=== PATIENT | female | born 1995 | race Caucasian/White ===

== ENCOUNTER 2017-03-25 01:31 | Emergency (ER) | payer MEDICAID ==
[~2017-03-25] VITALS: Ht 165.1 cm; Wt 72.6 kg
[2017-03-25 01:42] VITALS: BP 137/90
[2017-03-25 01:50] LABS: URINE BLOOD 3+ (NEG)
--- NOTE | 2017-03-25 01:50 | Emergency Room Report ---
History of Present Illness Time Seen by MD Rodriguez Presenting Problem in Triage Pt arrived:Walked Presenting Problem:PT C/O BURNING AND PAIN WITH URINATION AND PAIN IN THE LOWER BACK. 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 N Clinical Suspician of Infection? N Mental Status: 1 - Regular (Normal Baseline) Sepsis Risk:Low Sepsis Risk Have you (or family members/close friends) recently traveled outside the [place]? N If Yes, where/when: Have you had exposure to infectious disease within the past month? N TB? Other? Specify: Source patient, RN notes reviewed, old records Exam Limitations no limitations Comment urinary freq and dysuria over the last few days with no fever or vomiting Cardiac Chest Pain Chest pain indicative of cardiac No Timing/Duration this evening Severity moderate ALLERGIES Coded Allergies: No Known Allergies (03/25/17) Home Medications Reported Medications No Known Home Medications History Medical History General CAD? No Angina: No [place]: No Hypertension? No Hyperlipidemia? No CHF? No DVT? No PE? No COPD? No Asthma? No Anemia? No GERD? No Gastric ulcers? No GI Bleed? No Hernia? No Thyroid Problems? No Hypothyroidism? No CVA? No Seizures? No Diabetes? No Renal Insuffiency? No End Stage Renal Disease? No UTI? No Stones? No BPH? No GB Disease: No Nephritic Syndrome? No Asplenia? No Hepatitis? No Sickle Cell Disease? No Arthritis? No Migraines? No Cataracts? No Glaucoma? No MRSA? No HIV? No TB? No Anxiety? No Depression? No Cancer? No More? 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 Respiratory denies cough, denies shortness of breath, denies wheezing Cardiovascular denies chest pain, denies palpitations, denies syncope Gastrointestinal denies abdominal pain, denies diarrhea, denies vomiting Genitourinary see HPI, dysuria, frequency. denies: discharge, abnormal vaginal bleeding, hematuria. Musculoskeletal denies back pain, denies joint pain, denies joint swelling, denies neck pain Skin denies see HPI, denies rash Psychiatric/Neurological denies headache, denies seizure Physical Exam Vital Signs Vital Signs Date Time Temp Pulse Resp B/P Pulse O2 O2 Flow FiO2 Ox Delivery Rate 03/25 0142 98.4 85 16 137/90 98 - WBC >12,000 or <4,000 or 10% bands? 2 or more SIRS Criteria Met? B/P:137/90 MAP:105 Creatinine >2.0? UA output<0.5ml/kg/hr for 2 hrs? Platelet count >100,000? Lactate >2.0mmol/1? INR >1.2 or PTT > than 60 sec? Evidence of Organ Dysfunction? Provider documented clinical suspician of infection? N Sepsis Criteria Count: 0 Sepsis Risk: Low Sepsis Risk General Appearance no apparent distress Eye Exam - bilateral eye PERRL, bilateral eye EOMI Ear, Nose, Throat normal ENT inspection Neck non-tender Respiratory Status No: respiratory distress. Lung Sounds bilateral: lungs clear. 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 No Results/Orders Laboratory Tests 03/25/17 0140: Urine Color ORANGE, Urine Appearance Turbid, Urine pH 5.5, Ur Specific [place] > = 1.030, Urine Protein 3+ H, Urine Ketones NEGATIVE, Urine Blood 3+ H, Urine Nitrate POSITIVE H, Urine Bilirubin NEGATIVE, Urine Urobilinogen >=8.0 H, Ur Leukocyte Esterase 2+ H, Urine RBC 20-50, Urine WBC 10-20, Ur Squamous Epith Cells 3-5, Urine Bacteria 2+, Urine Mucus 1+, Urine Glucose 1+ H Current Medication Orders Sig/Kal Start time Last Medication Dose Route Stop Time Status Admin Trimethoprim/ 0 .STK-MED ONE 03/25 214 DC Sulfamethoxazole PO Orders Procedure Date/time Status URINALYSIS/COMPLETE 03/25 141 Complete URINE 03/25 141 Complete CULTURE, URINE 03/25 140 Active Departure Departure Time of Disposition 0208 Disposition DC Home or Self Care(routine) Clinical Impression Primary Impression: UTI (urinary tract infection) Qualifiers: Urinary tract infection type: acute cystitis Hematuria presence: without hematuria Qualified Code: N30.00 - Acute cystitis without hematuria Condition STABLE Patient Instructions DI for Urinary Tract Infection (UTI) Additional Instructions fluids and see pcp for follow up and culture results Discharge Counseling Counseled pt/family regarding diagnosis, test results, medications/RX, follow up needs Prescriptions Current Visit Scripts SULFAMETHOXAZOLE/TRIMETHOPRIM (Sulfamethoxazole-Tmp Ds Tablet) 1 TAB PO BID #14 TAB ED Critical Care Critical Care No at 0216
--- NOTE | 2017-03-25 01:50 | Emergency Room Report ---
History of Present Illness Time Seen by MD Rodriguez Presenting Problem in Triage Pt arrived:Walked Presenting Problem:PT C/O BURNING AND PAIN WITH URINATION AND PAIN IN THE LOWER BACK. 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 N Clinical Suspician of Infection? N Mental Status: 1 - Regular (Normal Baseline) Sepsis Risk:Low Sepsis Risk Have you (or family members/close friends) recently traveled outside the [place]? N If Yes, where/when: Have you had exposure to infectious disease within the past month? N TB? Other? Specify: Source patient, RN notes reviewed, old records Exam Limitations no limitations Comment urinary freq and dysuria over the last few days with no fever or vomiting Cardiac Chest Pain Chest pain indicative of cardiac No Timing/Duration this evening Severity moderate ALLERGIES Coded Allergies: No Known Allergies (03/25/17) Home Medications Reported Medications No Known Home Medications History Medical History General CAD? No Angina: No [place]: No Hypertension? No Hyperlipidemia? No CHF? No DVT? No PE? No COPD? No Asthma? No Anemia? No GERD? No Gastric ulcers? No GI Bleed? No Hernia? No Thyroid Problems? No Hypothyroidism? No CVA? No Seizures? No Diabetes? No Renal Insuffiency? No End Stage Renal Disease? No UTI? No Stones? No BPH? No GB Disease: No Nephritic Syndrome? No Asplenia? No Hepatitis? No Sickle Cell Disease? No Arthritis? No Migraines? No Cataracts? No Glaucoma? No MRSA? No HIV? No TB? No Anxiety? No Depression? No Cancer? No More? 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 Respiratory denies cough, denies shortness of breath, denies wheezing Cardiovascular denies chest pain, denies palpitations, denies syncope Gastrointestinal denies abdominal pain, denies diarrhea, denies vomiting Genitourinary see HPI, dysuria, frequency. denies: discharge, abnormal vaginal bleeding, hematuria. Musculoskeletal denies back pain, denies joint pain, denies joint swelling, denies neck pain Skin denies see HPI, denies rash Psychiatric/Neurological denies headache, denies seizure Physical Exam Vital Signs Vital Signs Date Time Temp Pulse Resp B/P Pulse O2 O2 Flow FiO2 Ox Delivery Rate 03/25 0142 98.4 85 16 137/90 98 - WBC >12,000 or <4,000 or 10% bands? 2 or more SIRS Criteria Met? B/P:137/90 MAP:105 Creatinine >2.0? UA output<0.5ml/kg/hr for 2 hrs? Platelet count >100,000? Lactate >2.0mmol/1? INR >1.2 or PTT > than 60 sec? Evidence of Organ Dysfunction? Provider documented clinical suspician of infection? N Sepsis Criteria Count: 0 Sepsis Risk: Low Sepsis Risk General Appearance no apparent distress Eye Exam - bilateral eye PERRL, bilateral eye EOMI Ear, Nose, Throat normal ENT inspection Neck non-tender Respiratory Status No: respiratory distress. Lung Sounds bilateral: lungs clear. 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 No Results/Orders Laboratory Tests 03/25/17 0140: Urine Color ORANGE, Urine Appearance Turbid, Urine pH 5.5, Ur Specific [place] > = 1.030, Urine Protein 3+ H, Urine Ketones NEGATIVE, Urine Blood 3+ H, Urine Nitrate POSITIVE H, Urine Bilirubin NEGATIVE, Urine Urobilinogen >=8.0 H, Ur Leukocyte Esterase 2+ H, Urine RBC 20-50, Urine WBC 10-20, Ur Squamous Epith Cells 3-5, Urine Bacteria 2+, Urine Mucus 1+, Urine Glucose 1+ H Current Medication Orders Sig/Kal Start time Last Medication Dose Route Stop Time Status Admin Trimethoprim/ 0 .STK-MED ONE 03/25 214 DC Sulfamethoxazole PO Orders Procedure Date/time Status URINALYSIS/COMPLETE 03/25 141 Complete URINE 03/25 141 Complete CULTURE, URINE 03/25 140 Active Departure Departure Time of Disposition 0208 Disposition DC Home or Self Care(routine) Clinical Impression Primary Impression: UTI (urinary tract infection) Qualifiers: Urinary tract infection type: acute cystitis Hematuria presence: without hematuria Qualified Code: N30.00 - Acute cystitis without hematuria Condition STABLE Patient Instructions DI for Urinary Tract Infection (UTI) Additional Instructions fluids and see pcp for follow up and culture results Discharge Counseling Counseled pt/family regarding diagnosis, test results, medications/RX, follow up needs Prescriptions Current Visit Scripts SULFAMETHOXAZOLE/TRIMETHOPRIM (Sulfamethoxazole-Tmp Ds Tablet) 1 TAB PO BID #14 TAB ED Critical Care Critical Care No at 0216
[2017-03-25 02:01] LABS: URINE BILIRUBIN - DIPSTICK NEGATIVE (NEG)
[2017-03-25] MEDS ORDERED: SEPTRA DS 800 M1 TAB PO (02:16)
--- OUTSIDE RECORDS SUMMARY | 2017-03-25 02:42 | External Medical Summary Rpt | CCD ---
Demographics Home Phone Preferred Language Luxembourgish Marital Status Unknown Nondenominational Affiliation Unknown Race Unknown Ethnic Group Unknown Author Author , LEANNE Organization LEANNE Address Unknown Phone [email or web address] Purpose Continuity of Care Document - 12-26-2013 through 2016 Problems Code Diagnosis DOS Provider Status N39.0 URINARY TRACT INFECTION, SITE NOT SPECIFIED Results Labs Lab Lab Date Result Refere Interp Status Commen Order Detail nces retati t Range on Urine test (03-25-2017 01:40) Urine = NEG complet pregnan 017 NEGATIV ed cy test 01:40 E Urinalysis with microscopy (03-25-2017 01:40) Bacteri 2+ 2+ L O complet a 017 ed detecti 01:40 on in urine sedimen t by Urine NEGATIV NEG complet total 017 E ed bilirub 01:40 NEGATIV in E L detecti on by test Comment: BILIRUBIN CONFIRMED WITH ICTOTEST Urine 3+ 3+ L NEG complet blood 017 ed detecti 01:40 on Urine ORANGE YELLOW complet color 017 ORANGE ed 01:40 L Glucose 1 + NEG complet ur 017 ed test 01:40 strip Urine NEGATIV NEG complet ketones 017 E ed 01:40 NEGATIV detecti E L on by mg/dL automat ed cony Mucus 2+ 2+ L NEG complet detecti 017 ed on in 01:40 urine sedimen t by lig Mucus 1+ 1+ L OCC complet detecti 017 ed on in 01:40 urine sedimen t by lig Urine POSITIV NEG complet nitrite 017 E ed 01:40 POSITIV detecti E L on by test strip Urine = 5.5 5.0-8.5 complet pH 017 ed 01:40 Urine 3 + NEG complet protein 017 mg/dL ed 01:40 measure ment by automat ed t Erythro 20-50 0 complet cytes 017 20-50 L ed detecti 01:40 on in rbc/hpf urine sedimen t Urine > = 1.005-1 complet specifi 017 1.030 .030 ed c 01:40 gravity measure ment Maryou 3-5 3-5 0-5 complet s 017 L ed epithel 01:40 #/hpf ial cells detecti on in u Urine >=8.0 NEG complet urobili 017 >=8.0 L ed nogen 01:40 detecti E.U./dL on by test str Urine 10 - 20 O complet leukocy 017 ed cony 01:40 wbc/hpf count (number /volume ) Urine Turbid CLEAR complet appeara 017 Turbid ed nce 01:40 L determi [facility] DRUGS OF ABUSE SCREEN (7 TEST) (06-16-2014 02:01) Opiates NEGATIV NEGATIV complet 015 E E,NEG. ed 02:01 Comment: DRUG SCREEN CUTOFF LEVELS: Comment: PCP\E\.sk5\E\\E\.sk5\ E\- 25 ng/ml Comment: BENZO \E\.sk5\E\-\E\.sk5\E\ 200 ng/ml Comment: SINDY\E\.sk5\E\\E\.sk5\ E\-\E\.sk5\E\300 ng/ml Comment: AMP\E\.sk5\E\\E\.sk5\ E\-\E\.sk5\E\1000 ng/ml Comment: THC\E\.sk5\E\\E\.sk5\ E\-\E\.sk5\E\50 ng/ml Comment: OPI\E\.sk5\E\\E\.sk5\ E\-\E\.sk5\E\300 ng/ml Comment: CEZAR - 200 ng/ml Comment: METDON \E\.sk5\E\-\E\.sk5\E\ 300 ng/ml Comment: PROPOXY - 300 ng/ml Comment: METHAQ - 300 ng/ml Comment: Comment: Comment: Benzodi NEGATIV NEGATIV complet azepine 015 E E,NEG. ed 02:01 Cocaine NEGATIV NEGATIV complet 015 E E,NEG. ed 02:01 Barbitu NEGATIV NEGATIV complet rates 015 E E,NEG. ed 02:01 Phencyc NEGATIV NEGATIV complet lidine 015 E E,NEG. ed (PCP) 02:01 Ampheta NEGATIV NEGATIV complet min/Met 015 E E,NEG. ed hamp 02:01 THC NEGATIV NEGATIV complet 015 E E,NEG. ed 02:01 METHADONE,URINE (06-16-2014 02:01) Methado NEGATIV NEGATIV complet ne 015 E E,NEG. ed Urine 02:01 URINALYSIS W/MICRO (06-16-2014 02:01) Epithel 06-16- 10-20 NONE complet ial 015 SQUAMOU SEEN ed Cells 02:01 S EPITHEL IAL CELLS Bacteri 2+ NONE complet a 015 SEEN ed 02:01 UA RBC NONE 0-2 complet 015 SEEN ed 02:01 UA WBC 2-5 0-2 complet 015 ed 02:01 Blood NEGATIV NEGATIV complet 015 E E ed 02:01 Bilirub NEGATIV NEGATIV complet in 015 E E ed 02:01 Urobili NEGATIV 0-1 complet nogen 015 E mg/dL ed 02:01 Ketones NEGATIV NEGATIV complet 015 E E ed 02:01 Glucose NEGATIV NEGATIV complet 015 E E ed 02:01 UA NEGATIV NEGATIV complet Protein 015 E E ed 02:01 Nitrite NEGATIV NEGATIV complet 015 E E ed 02:01 Leukocy NEGATIV NEGATIV complet te 015 E E ed 02:01 PH 6.0 5.0-7.0 complet 015 ed 02:01 Specifi 1.025 1.016-1 complet c 015 .022 ed [place] 02:01 Appeara HAZY CLEAR complet nce 015 ed 02:01 Color YELLOW YELLOW, complet 015 STRAW,C ed 02:01 OLORLES S,PALE YELLOW SUBOXONE, IN HOUSE (06-16-2014 02:01) BUPRENO 06-16-2 NEGATIV NEGATIV complet RPHINE/ 015 E E ed 02:01 SUBOXAN E URINALYSIS W/MICRO (06-12-2014 16:47) TRICHOM 06-12-2 none complet ONAS 015 seen ed 16:47 AMORPHO -23-2 NONE NONE complet US 015 SEEN SEEN ed SEDIMEN 16:47 T YEAST, 06-12-2 NONE NONE complet UA 015 OBSERVE OBSERVE ed 16:47 D D Crystal 06-12-2 NONE NONE complet s 015 SEEN SEEN ed 16:47 Casts 06-12-2 NONE NONE complet 015 SEEN SEEN ed 16:47 Mucus -23-2 NONE NONE complet 015 SEEN SEEN ed 16:47 Epithel -23-2 5-10 NONE complet ial 015 SQUAMOU SEEN ed Cells 16:47 S EPITHEL IAL CELLS Bacteri 06-12-2 1+ NONE complet a 015 SEEN ed 16:47 UA RBC -23-2 NONE 0-2 complet 015 SEEN ed 16:47 UA WBC -23-2 0-2 0-2 complet 015 ed 16:47 Blood -23-2 NEGATIV NEGATIV complet 015 E E ed 16:47 Bilirub -23-2 NEGATIV NEGATIV complet in 015 E E ed 16:47 Urobili 02-23-2 NEGATIV 0-1 complet nogen 015 E mg/dL ed 16:47 Ketones -23-2 NEGATIV NEGATIV complet 015 E E ed 16:47 Glucose 02-23-2 NEGATIV NEGATIV complet 015 E E ed 16:47 UA 02-23-2 NEGATIV NEGATIV complet Protein 015 E E ed 16:47 Nitrite 02-23-2 NEGATIV NEGATIV complet 015 E E ed 16:47 Leukocy 02-23-2 NEGATIV NEGATIV complet te 015 E E ed 16:47 PH 02-23-2 6.5 5.0-7.0 complet 015 ed 16:47 Specifi 02-23-2 1.015 1.016-1 complet c 015 .022 ed [place] 16:47 Appeara SL HAZY CLEAR complet nce 015 ed 16:47 Color DARK YELLOW, complet 015 YELLOW STRAW,C ed 16:47 OLORLES S,PALE YELLOW DRUGS OF ABUSE SCREEN (7 TEST) (06-09-2014 22:13) Opiates NEGATIV NEGATIV complet 015 E E,NEG. ed 22:13 Comment: DRUG SCREEN CUTOFF LEVELS: Comment: PCP\E\.sk5\E\\E\.sk5\ E\- 25 ng/ml Comment: BENZO \E\.sk5\E\-\E\.sk5\E\ 200 ng/ml Comment: SINDY\E\.sk5\E\\E\.sk5\ E\-\E\.sk5\E\300 ng/ml Comment: AMP\E\.sk5\E\\E\.sk5\ E\-\E\.sk5\E\1000 ng/ml Comment: THC\E\.sk5\E\\E\.sk5\ E\-\E\.sk5\E\50 ng/ml Comment: OPI\E\.sk5\E\\E\.sk5\ E\-\E\.sk5\E\300 ng/ml Comment: CEZAR - 200 ng/ml Comment: METDON \E\.sk5\E\-\E\.sk5\E\ 300 ng/ml Comment: PROPOXY - 300 ng/ml Comment: METHAQ - 300 ng/ml Comment: Comment: Comment: Benzodi NEGATIV NEGATIV complet azepine 015 E E,NEG. ed 22:13 Cocaine NEGATIV NEGATIV complet 015 E E,NEG. ed 22:13 Barbitu NEGATIV NEGATIV complet rates 015 E E,NEG. ed 22:13 Phencyc NEGATIV NEGATIV complet lidine 015 E E,NEG. ed (PCP) 22:13 Ampheta NEGATIV NEGATIV complet min/Met 015 E E,NEG. ed hamp 22:13 THC NEGATIV NEGATIV complet 015 E E,NEG. ed 22:13 METHADONE,URINE (06-09-2014 22:13) Methado NEGATIV NEGATIV complet ne 015 E E,NEG. ed Urine 22:13 URINALYSIS W/MICRO (06-09-2014 22:13) TRICHOM 06-09- none complet ONAS 015 seen ed 22:13 AMORPHO 06-09- NONE NONE complet US 015 SEEN SEEN ed SEDIMEN 22:13 T YEAST, NONE NONE complet UA 015 OBSERVE OBSERVE ed 22:13 D D Crystal 06-09- NONE NONE complet s 015 SEEN SEEN ed 22:13 Casts NONE NONE complet 015 SEEN SEEN ed 22:13 Mucus 06-09- NONE NONE complet 015 SEEN SEEN ed 22:13 Epithel 06-09-2 0-4 NONE complet ial 015 SQUAMOU SEEN ed Cells 22:13 S EPITHEL IAL CELLS Bacteri 06-09- TRACE NONE complet a 015 SEEN ed 22:13 UA RBC 06-09-2 NONE 0-2 complet 015 SEEN ed 22:13 UA WBC 06-09-2 0-2 0-2 complet 015 ed 22:13 Blood NEGATIV NEGATIV complet 015 E E ed 22:13 Bilirub 06-09-2 NEGATIV NEGATIV complet in 015 E E ed 22:13 Urobili 06-09-2 NEGATIV 0-1 complet nogen 015 E mg/dL ed 22:13 Ketones 06-09- NEGATIV NEGATIV complet 015 E E ed 22:13 Glucose 06-09-2 NEGATIV NEGATIV complet 015 E E ed 22:13 UA 06-09-2 NEGATIV NEGATIV complet Protein 015 E E ed 22:13 Nitrite 06-09-2 NEGATIV NEGATIV complet 015 E E ed 22:13 Leukocy 06-09-2 NEGATIV NEGATIV complet te 015 E E ed 22:13 PH 06-09- 7.0 5.0-7.0 complet 015 ed 22:13 Specifi 06-09- 1.015 1.016-1 complet c 015 .022 ed [place] 22:13 Appeara 06-09-2 SL HAZY CLEAR complet nce 015 ed 22:13 Color 06-09- DARK YELLOW, complet 015 YELLOW STRAW,C ed 22:13 OLORLES S,PALE YELLOW SUBOXONE, IN HOUSE (06-09-2014 22:13) BUPRENO NEGATIV NEGATIV complet RPHINE/ 015 E E ed 22:13 SUBOXAN E RPR,SERUM (06-08-2014 14:42) RPR NON-OLVIN NON-OLVIN complet 015 CTIVE CTIVE ed 14:42 METHADONE,URINE (06-07-2014 15:00) Methado NEGATIV NEGATIV complet ne 015 E E,NEG. ed Urine 15:00 DRUGS OF ABUSE SCREEN (7 TEST) (06-07-2014 15:00) Opiates NEGATIV NEGATIV complet 015 E E,NEG. ed 15:00 Comment: DRUG SCREEN CUTOFF LEVELS: Comment: PCP\E\.sk5\E\\E\.sk5\ E\- 25 ng/ml Comment: BENZO \E\.sk5\E\-\E\.sk5\E\ 200 ng/ml Comment: SINDY\E\.sk5\E\\E\.sk5\ E\-\E\.sk5\E\300 ng/ml Comment: AMP\E\.sk5\E\\E\.sk5\ E\-\E\.sk5\E\1000 ng/ml Comment: THC\E\.sk5\E\\E\.sk5\ E\-\E\.sk5\E\50 ng/ml Comment: OPI\E\.sk5\E\\E\.sk5\ E\-\E\.sk5\E\300 ng/ml Comment: CEZAR - 200 ng/ml Comment: METDON \E\.sk5\E\-\E\.sk5\E\ 300 ng/ml Comment: PROPOXY - 300 ng/ml Comment: METHAQ - 300 ng/ml Comment: Comment: Comment: Benzodi NEGATIV NEGATIV complet azepine 015 E E,NEG. ed 15:00 Cocaine NEGATIV NEGATIV complet 015 E E,NEG. ed 15:00 Barbitu 02-18-2 NEGATIV NEGATIV complet rates 015 E E,NEG. ed 15:00 Phencyc 02-18-2 NEGATIV NEGATIV complet lidine 015 E E,NEG. ed (PCP) 15:00 Ampheta 02-18-2 NEGATIV NEGATIV complet min/Met 015 E E,NEG. ed hamp 15:00 THC 02-18-2 NEGATIV NEGATIV complet 015 E E,NEG. ed 15:00 URINALYSIS W/MICRO (06-07-2014 15:00) AMORPHO 02-18-2 1+ NONE complet US 015 SEEN ed SEDIMEN 15:00 T Epithel 02-18-2 10-20 NONE complet ial 015 SQUAMOU SEEN ed Cells 15:00 S EPITHEL IAL CELLS Bacteri 02-18-2 2+ NONE complet a 015 SEEN ed 15:00 UA WBC 02-18-2 0-2 0-2 complet 015 ed 15:00 Blood 02-18-2 NEGATIV NEGATIV complet 015 E E ed 15:00 Bilirub 02-18-2 NEGATIV NEGATIV complet in 015 E E ed 15:00 Urobili 02-18-2 NEGATIV 0-1 complet nogen 015 E mg/dL ed 15:00 Ketones 02-18-2 NEGATIV NEGATIV complet 015 E E ed 15:00 Glucose 02-18-2 NEGATIV NEGATIV complet 015 E E ed 15:00 UA 02-18-2 NEGATIV NEGATIV complet Protein 015 E E ed 15:00 Nitrite 02-18-2 NEGATIV NEGATIV complet 015 E E ed 15:00 Leukocy 02-18-2 NEGATIV NEGATIV complet te 015 E E ed 15:00 PH 02-18-2 8.0 5.0-7.0 complet 015 ed 15:00 Specifi 02-18-2 1.015 1.016-1 complet c 015 .022 ed [place] 15:00 Appeara 02-18-2 HAZY CLEAR complet nce 015 ed 15:00 Color 02-18-2 YELLOW YELLOW, complet 015 STRAW,C ed 15:00 OLORLES S,PALE YELLOW SUBOXONE, IN HOUSE (06-07-2014 15:00) BUPRENO 02-18-2 NEGATIV NEGATIV complet RPHINE/ 015 E E ed 15:00 SUBOXAN E HEMOGLOBIN (06-07-2014 14:50) Hemoglo 13.1 12.0-16 complet bin 015 gm/dL .0 ed 14:50 HEMATOCRIT (06-07-2014 14:50) Hematoc 38.3 % 37.0-47 complet rit 015 .0 ed 14:50 URINALYSIS W/C+S IF INDICATED (05-31-2014 23:46) TRICHOM NONE complet ONAS 015 SEEN ed 23:46 AMORPHO 05-31- NONE NONE complet US 015 SEEN SEEN ed SEDIMEN 23:46 T YEAST, NONE NONE complet UA 015 OBSERVE OBSERVE ed 23:46 D D Crystal 05-31- NONE NONE complet s 015 SEEN SEEN ed 23:46 Casts 05-31- NONE NONE complet 015 SEEN SEEN ed 23:46 Mucus -11-2 NONE NONE complet 015 SEEN SEEN ed 23:46 Epithel 05-31-2 0-4 NONE complet ial 015 SQUAMOU SEEN ed Cells 23:46 S EPITHEL IAL CELLS Bacteri 05-31-2 NONE NONE complet a 015 SEEN SEEN ed 23:46 UA RBC 05-31-2 NONE 0-2 complet 015 SEEN ed 23:46 UA WBC -11-2 NONE 0-2 complet 015 SEEN ed 23:46 Blood 05-31- NEGATIV NEGATIV complet 015 E E ed 23:46 Bilirub NEGATIV NEGATIV complet in 015 E E ed 23:46 Urobili 05-31-2 NEGATIV 0-1 complet nogen 015 E mg/dL ed 23:46 Ketones 05-31-2 NEGATIV NEGATIV complet 015 E E ed 23:46 Glucose 05-31-2 NEGATIV NEGATIV complet 015 E E ed 23:46 UA --2 NEGATIV NEGATIV complet Protein 015 E E ed 23:46 Nitrite --2 NEGATIV NEGATIV complet 015 E E ed 23:46 Leukocy 11-2 NEGATIV NEGATIV complet te 015 E E ed 23:46 PH 05-31- 6.5 5.0-7.0 complet 015 ed 23:46 Specifi 05-31-2 1.020 1.016-1 complet c 015 .022 ed [place] 23:46 Appeara 11-2 CLEAR CLEAR complet nce 015 ed 23:46 Color 05-31-2 YELLOW YELLOW, complet 015 STRAW,C ed 23:46 OLORLES S,PALE YELLOW HCG SCREEN,URINE (05-31-2014 23:46) Qualita -11-2 POSITIV NEGATIV complet tive 015 E E ed HCG 23:46 URINALYSIS W/MICRO (05-22-2014 15:25) AMORPHO 05-22-2 3+ NONE complet US 015 SEEN ed SEDIMEN 15:25 T Epithel 02-02-2 50-100 NONE complet ial 015 SEEN ed Cells 15:25 Bacteri 02-02-2 NONE NONE complet a 015 SEEN SEEN ed 15:25 UA RBC 02-02-2 0-2 0-2 complet 015 ed 15:25 UA WBC 02-02-2 NONE 0-2 complet 015 SEEN ed 15:25 Blood 02-02-2 NEGATIV NEGATIV complet 015 E E ed 15:25 Bilirub 02-02-2 NEGATIV NEGATIV complet in 015 E E ed 15:25 Urobili 02-02-2 NEGATIV 0-1 complet nogen 015 E mg/dL ed 15:25 Ketones 02-02-2 NEGATIV NEGATIV complet 015 E E ed 15:25 Glucose 02-02-2 NEGATIV NEGATIV complet 015 E E ed 15:25 UA 02-02-2 NEGATIV NEGATIV complet Protein 015 E E ed 15:25 Nitrite 02-02-2 NEGATIV NEGATIV complet 015 E E ed 15:25 Leukocy 02-02-2 NEGATIV NEGATIV complet te 015 E E ed 15:25 PH 02-02-2 8.0 5.0-7.0 complet 015 ed 15:25 Specifi 02-02-2 1.010 1.016-1 complet c 015 .022 ed [place] 15:25 Appeara 02-02-2 HAZY CLEAR complet nce 015 ed 15:25 Color -02-2 DARK YELLOW, complet 015 YELLOW STRAW,C ed 15:25 OLORLES S,PALE YELLOW URINALYSIS W/MICRO (05-08-2014 18:00) AMORPHO 05-08-2 2+ NONE complet US 015 SEEN ed SEDIMEN 18:00 T Epithel 05-08-2 50-100 NONE complet ial 015 SEEN ed Cells 18:00 UA RBC 05-08-2 0-2 0-2 complet 015 ed 18:00 Blood 05-08-2 NEGATIV NEGATIV complet 015 E E ed 18:00 Bilirub 05-08-2 NEGATIV NEGATIV complet in 015 E E ed 18:00 Urobili 05-08-2 0 mg/dL 0-1 complet nogen 015 ed 18:00 Ketones 05-08-2 NEGATIV NEGATIV complet 015 E E ed 18:00 Glucose 05-08-2 NEGATIV NEGATIV complet 015 E E ed 18:00 UA 05-08-2 TRACE NEGATIV complet Protein 015 E ed 18:00 Nitrite 05-08-2 NEGATIV NEGATIV complet 015 E E ed 18:00 Leukocy 05-08-2 NEGATIV NEGATIV complet te 015 E E ed 18:00 PH 05-08-2 8.0 5.0-7.0 complet 015 ed 18:00 Specifi 05-08-2 1.005 1.016-1 complet c 015 .022 ed [place] 18:00 Appeara 2 SL HAZY CLEAR complet nce 015 ed 18:00 Color 05-08-2 YELLOW YELLOW, complet 015 STRAW,C ed 18:00 OLORLES S,PALE YELLOW GLUCOSE 50 GM,NO FBS (04-17-2014 15:30) Comment: 50 Gram Glucose Test Glucose 04-17-2 96 70-110 complet , 1 Hr 014 mg/dL ed 15:30 URINALYSIS W/MICRO (04-17-2014 14:19) AMORPHO 04-17-2 4+ NONE complet US 014 SEEN ed SEDIMEN 14:19 T Comment: 4+ AMORPHOUS SEDIMENT; ALL ALMAGUER OBSCURED Blood 04-17-2 NEGATIV NEGATIV complet 014 E E ed 14:19 Bilirub 04-17-2 NEGATIV NEGATIV complet in 014 E E ed 14:19 Urobili 04-17-2 NEGATIV 0-1 complet nogen 014 E mg/dL ed 14:19 Ketones 04-17-2 NEGATIV NEGATIV complet 014 E E ed 14:19 Glucose 04-17-2 NEGATIV NEGATIV complet 014 E E ed 14:19 UA 12-29-2 NEGATIV NEGATIV complet Protein 014 E E ed 14:19 Nitrite 12-29-2 POSITIV NEGATIV complet 014 E E ed 14:19 Leukocy 12-29-2 NEGATIV NEGATIV complet te 014 E E ed 14:19 PH 12-29-2 7.0 5.0-7.0 complet 014 ed 14:19 Specifi 12-29-2 1.015 1.016-1 complet c 014 .022 ed [place] 14:19 Appeara 12-29-2 HAZY CLEAR complet nce 014 ed 14:19 Color 12-29-2 YELLOW YELLOW, complet 014 STRAW,C ed 14:19 OLORLES S,PALE YELLOW URINALYSIS W/MICRO (04-03-2014 14:46) Mucus 12-15-2 TRACE NONE complet 014 SEEN ed 14:46 Epithel 12-15-2 5-10 NONE complet ial 014 SQUAMOU SEEN ed Cells 14:46 S EPITHEL IAL CELLS Bacteri 12-15-2 2+ NONE complet a 014 SEEN ed 14:46 UA RBC 12-15-2 NONE 0-2 complet 014 SEEN ed 14:46 UA WBC 12-15-2 2-5 0-2 complet 014 ed 14:46 Blood 12-15-2 NEGATIV NEGATIV complet 014 E E ed 14:46 Bilirub 12-15-2 NEGATIV NEGATIV complet in 014 E E ed 14:46 Urobili 12-15-2 NEGATIV 0-1 complet nogen 014 E mg/dL ed 14:46 Ketones 12-15-2 NEGATIV NEGATIV complet 014 E E ed 14:46 Glucose 12-15-2 NEGATIV NEGATIV complet 014 E E ed 14:46 UA 12-15-2 NEGATIV NEGATIV complet Protein 014 E E ed 14:46 Nitrite 12-15-2 NEGATIV NEGATIV complet 014 E E ed 14:46 Leukocy 12-15-2 NEGATIV NEGATIV complet te 014 E E ed 14:46 PH 12-15-2 7.0 5.0-7.0 complet 014 ed 14:46 Specifi 12-15-2 1.015 1.016-1 complet c 014 .022 ed [place] 14:46 Color 12-15-2 YELLOW YELLOW, complet 014 STRAW,C ed 14:46 OLORLES S,PALE YELLOW Appeara 15-2 HAZY CLEAR complet nce 014 ed 14:46 CBC W/DIFF (04-01-2014 14:30) Comment: SCANNED DIFF/AP Lymphoc 12-13-2 0.4 X 0.7-4.3 complet yte 014 10\S\3 ed Count 14:30 Basophi 12-13-2 0.0 X 0.0-0.1 complet l Count 014 10\S\3 ed 14:30 Eosinop 12-13-2 0.0 X 0.0-0.8 complet hil 014 10\S\3 ed Count 14:30 Monocyt 12-13-2 0.5 X 0.2-1.2 complet e Count 014 10\S\3 ed 14:30 Neutrop 12-13-2 13.0 X 1.5-7.1 complet hil 014 10\S\3 ed Count 14:30 Basophi 12-13-2 0.0 % 0.0-2.0 complet ls % 014 ed 14:30 Eosinop 12-13-2 0.1 % 0.0-6.0 complet hils % 014 ed 14:30 Monocyt 12-13-2 3.5 % 0.0-13. complet es % 014 0 ed 14:30 Lymphoc 12-13-2 3.1 % 20.0-51 complet ytes % 014 .0 ed 14:30 Neutrop 12-13-2 93.3 % 42.0-75 complet hils % 014 .0 ed 14:30 MPV 12-13-2 9.2 fl 6.2-10. complet 014 6 ed 14:30 RDW 12-13-2 14.0 % 12.0-15 complet 014 .0 ed 14:30 MCV 12-13-2 91.7 fl 81.0-99 complet 014 .0 ed 14:30 MCHC 12-13-2 32.0 32.0-37 complet 014 gm/dL .0 ed 14:30 MCH 12-13-2 29.4 pg 27.0-32 complet 014 .0 ed 14:30 Platele 12-13-2 262 X 130-400 complet t 014 10\S\3 ed 14:30 Hematoc 12-13-2 40.5 % 37.0-47 complet rit 014 .0 ed 14:30 Hemoglo 12-13-2 13.0 12.0-16 complet bin 014 gm/dL .0 ed 14:30 RBC 12-13-2 4.41 X 4.20-5. complet 014 10\S\6 40 ed 14:30 WBC 12-13-2 14.0 X 3.5-9.6 complet 014 10\S\3 ed 14:30 COMPREHENSIVE METABOLIC PANEL (04-01-2014 14:30) A/G 12-13-2 0.9 complet Ratio 014 ed 14:30 BUN/Cre 04-01-2 16 complet at 014 ed Ratio 14:30 Bilirub 12-13-2 0.27 0.0-1.0 complet in, 014 mg/dL ed Total 14:30 AST -13-2 14 U/L 15-37 complet 014 ed 14:30 ALT -13-2 30 U/L 3-50 complet 014 ed 14:30 Alk 12-13-2 50 U/L 50-136 complet Phos 014 ed 14:30 Albumin -13-2 3.1 3.4-5.0 complet 014 gm/dL ed 14:30 Total 12-13-2 6.7 6.4-8.2 complet Protein 014 gm/dL ed 14:30 Calcium -13-2 8.7 8.5-10. complet 014 mg/dL 1 ed 14:30 CO2 12-13-2 28 22-29 complet 014 mmol/L ed 14:30 Chlorid 13-2 102 98-107 complet e 014 mEq/L ed 14:30 Potassi -13-2 4.3 3.5-5.1 complet um 014 mEq/L ed 14:30 Sodium -13-2 137 136-145 complet 014 mEq/L ed 14:30 Creatin 12-13-2 0.7 0.6-1.3 complet ine 014 mg/dL ed 14:30 BUN 12-13-2 11 7-18 complet 014 mg/dL ed 14:30 Glucose -13-2 104 70-99 complet 014 mg/dL ed 14:30 LIPASE (04-01-2014 14:30) Lipase -13-2 116 U/L 73-393 complet 014 ed 14:30 AMYLASE,SERUM (04-01-2014 14:30) Amylase 46 U/L 25-115 complet 014 ed 14:30 CULTURE, URINE (04-01-2014 13:43) Clinica Specime complet l 014 n: ed Report 13:43 URINE Clinica Gram complet l 014 Positiv ed Report 13:43 e [facility] <10,000 complet l 014 Cfu/Ml ed Report 13:43 Clinica CUL RES complet l 014 ed Report 13:43 (Final) Clinica Status: complet l 014 Final ed Report 13:43 Last Updated : 014 17:09 Clin[facility] Collect complet l 014 ed: ed Report 13:43 014 13:43 HCG SCREEN,URINE (04-01-2014 13:43) Qualita POSITIV NEGATIV complet tive 014 E E ed HCG 13:43 URINALYSIS W/C+S IF INDICATED (04-01-2014 13:43) TRICHOM 04-01- NONE complet ONAS 014 SEEN ed 13:43 AMORPHO --2 NONE NONE complet US 014 SEEN SEEN ed SEDIMEN 13:43 T YEAST, 2 NONE NONE complet UA 014 OBSERVE OBSERVE ed 13:43 D D Crystal 04-01-2 NONE NONE complet s 014 SEEN SEEN ed 13:43 Casts 04-01- NONE NONE complet 014 SEEN SEEN ed 13:43 Mucus -13-2 NONE NONE complet 014 SEEN SEEN ed 13:43 Epithel -13-2 10-20 NONE complet ial 014 SQUAMOU SEEN ed Cells 13:43 S EPITHEL IAL CELLS Bacteri 04-01-2 NONE NONE complet a 014 SEEN SEEN ed 13:43 UA RBC -13-2 0-2 0-2 complet 014 ed 13:43 UA WBC -13-2 0-2 0-2 complet 014 ed 13:43 Blood --2 NEGATIV NEGATIV complet 014 E E ed 13:43 Bilirub --2 NEGATIV NEGATIV complet in 014 E E ed 13:43 Urobili 04-01-2 NEGATIV 0-1 complet nogen 014 E mg/dL ed 13:43 Ketones 12-13-2 NEGATIV NEGATIV complet 014 E E ed 13:43 Glucose 12-13-2 NEGATIV NEGATIV complet 014 E E ed 13:43 UA 12-13-2 NEGATIV NEGATIV complet Protein 014 E E ed 13:43 Nitrite 12-13-2 NEGATIV NEGATIV complet 014 E E ed 13:43 Leukocy 12-13-2 NEGATIV NEGATIV complet te 014 E E ed 13:43 PH 12-13-2 5.0 5.0-7.0 complet 014 ed 13:43 Specifi 12-13-2 1.020 1.016-1 complet c 014 .022 ed [place] 13:43 Appeara 12-13-2 SL HAZY CLEAR complet nce 014 ed 13:43 Color 12-13-2 YELLOW YELLOW, complet 014 STRAW,C ed 13:43 OLORLES S,PALE YELLOW ALPHA FETOPROTIEN 4 PROFILE (02-20-2014 13:17) Alpha-F 02-20-2 SEE complet eto 014 COMMENT ed 4Marker 13:17 S 014 02:18 PM Comment: Test Result Flag Unit RefValue Comment: ------- Comment: QUAD SCRN (2nd Tri) MATERNAL, S Comment: Calculated age at O[place] 18 years Comment: Maternal Weight 167 lbs Comment: Insulin dependent diabetes None Comment: Black race non-Black Comment: [place] by U/S scan 08/02/14 Comment: GA on collection by U/S scan 16,5 wk,d Comment: GA used in risk estimate Scan estimate Comment: AFP 0.94 MoM ( 33.4 ng/mL ) Comment: uE3 1.44 MoM ( 1.45 ng/mL ) Comment: hCG, TOTAL 0.49 MoM ( 13.5 IU/mL ) Comment: INHIBIN 0.86 MoM ( 141 pg/mL ) Comment: Down syndrome screen risk estimate < 1/50,000 Comment: Down syndrome maternal age risk 04/20,200 Comment: Trisomy 18 screen risk estimate < 1/100 Comment: INTERPRETATION Comment: Screen negative for neural tube defects and Down syndrome. Comment: The risk for trisomy 18 is less than 1%. Comment: RECOMMENDED FOLLOW UP None. Comment: GENERAL TEST INFORMATION Comment: This screening provides an estimation of risk, not a Comment: diagnosis. Incorrect or incomplete information may Comment: significantly alter results. Risks are adjusted for donor Comment: eggs, frozen embryos, and IVF. Comment: Comment: Results may be unreliable in twin pregnancies with a Comment: demise. Results are not available for pregnancies with Comment: triplets and higher-order multiples. Comment: Comment: A positive result occurs when the risk for Down syndrome Comment: equals or exceeds 1 in 270, when the risk for trisomy 18 Comment: equals or exceeds 1 in 100, or when the AFP MoM equals or Comment: exceeds 2.5. Comment: Comment: Screen results and family history influence individual Comment: risk. If there is a family history of a neural tube defect, Comment: chromosome abnormality, or other inherited condition, Comment: consider the option of a genetic consultation. Comment: Comment: For further information, please contact the maternal Comment: screening laboratory at . Comment: Other Information Initial testing Comment: Comment: Test Performed by: Comment: [facility] Comment: [address] [place] [address] Comment: Project Engineer: Mike Rehman M.D. URINALYSIS W/MICRO (02-20-2014 13:17) UA RBC 11-03-2 NONE 0-2 complet 014 SEEN ed 13:17 UA WBC 11-03-2 0-2 0-2 complet 014 ed 13:17 Blood 11-03-2 NEGATIV NEGATIV complet 014 E E ed 13:17 Bilirub 11-03-2 NEGATIV NEGATIV complet in 014 E E ed 13:17 Urobili 11-03-2 NEGATIV 0-1 complet nogen 014 E mg/dL ed 13:17 Glucose 11-03-2 NEGATIV NEGATIV complet 014 E E ed 13:17 UA 11-03-2 NEGATIV NEGATIV complet Protein 014 E E ed 13:17 Nitrite 11-03-2 NEGATIV NEGATIV complet 014 E E ed 13:17 Leukocy 11-03-2 NEGATIV NEGATIV complet te 014 E E ed 13:17 PH 11-03-2 6.5 5.0-7.0 complet 014 ed 13:17 Specifi 1.020 1.016-1 complet c 014 .022 ed [place] 13:17 Ketones NEGATIV NEGATIV complet 014 E E ed 13:17 Appeara CLEAR CLEAR complet nce 014 ed 13:17 Color DARK YELLOW, complet 014 YELLOW STRAW,C ed 13:17 OLORLES S,PALE YELLOW Epithel 10-20 NONE complet ial 014 SQU[place]OU SEEN ed Cells 13:17 S EPITHEL IAL CELLS Bacteri NONE NONE complet a 014 SEEN SEEN ed 13:17 URINALYSIS W/MICRO (12-26-2013 18:00) Leukocy NEGATIV NEGATIV complet te 014 E E ed 18:00 PH 5.0 5.0-7.0 complet 014 ed 18:00 Specifi 1.025 1.016-1 complet c 014 .022 ed [place] 18:00 Crystal 2-5 NONE complet s 014 CALCIUM SEEN ed 18:00 OXALATE CRYSTAL S Casts NONE NONE complet 014 SEEN SEEN ed 18:00 Mucus 2+ NONE complet 014 SEEN ed 18:00 Epithel 10-20 NONE complet ial 014 [place] SEEN ed Cells 18:00 S EPITHEL IAL CELLS Bacteri TRACE NONE complet a 014 SEEN ed 18:00 UA RBC 2-5 0-2 complet 014 ed 18:00 AMORPHO NONE NONE complet US 014 SEEN SEEN ed SEDIMEN 18:00 T YEAST, NONE NONE complet UA 014 OBSERVE OBSERVE ed 18:00 D D TRICHOM NONE complet ONAS 014 SEEN ed 18:00 Color DARK YELLOW, complet 014 YELLOW STRAW,C ed 18:00 OLORLES S,PALE YELLOW Blood 1+ NEGATIV complet 014 E ed 18:00 Bilirub NEGATIV NEGATIV complet in 014 E E ed 18:00 Urobili NEGATIV 0-1 complet nogen 014 E mg/dL ed 18:00 Ketones NEGATIV NEGATIV complet 014 E E ed 18:00 Glucose NEGATIV NEGATIV complet 014 E E ed 18:00 UA NEGATIV NEGATIV complet Protein 014 E E ed 18:00 [facility] SL HAZY CLEAR complet nce 014 ed 18:00 UA WBC 0-2 0-2 complet 014 ed 18:00 Nitrite NEGATIV NEGATIV complet 014 E E ed 18:00 RUBELLA IGG AB (12-26-2013 17:55) Rubella IMMUNE IMMUNE complet IgG 014 ed 17:55 RPR,SERUM (12-26-2013 17:55) RPR NON-OLVIN NON-OLVIN complet 014 CTIVE CTIVE ed 17:55 HEPATITIS C AB (12-26-2013 17:55) HCV AB 0.07 complet INDEX 014 Ratio ed 17:55 Comment: For our FDA approved HCV antibody assay, the CDC states that reflex Comment: supplemental testing of tjalsakyd-xwoy-nkxmvy ve samples can be limited Comment: to those with indices (or Signal/Cut-off ratios) <11.00. However, per Comment: CDC published guidelines, if the index (or Signal/Cut-off ratio) is > or Comment: = 11.00, then further confirmatory testing for this sample is Comment: unnecessary. Hepatit Negativ Negativ complet is C Ab 014 e e ed 17:55 Comment: Hepatitis Virus Panel Legend Comment: Comment: HBSAB = Hepatitis B surface antibody Qualitative Comment: HBSCON = Hepatitis B surface antibody Concentration Comment: HBSAG = Hepatitis B surface antigen Comment: HBCAB = Hepatitis B core antibody, Total Comment: HBC IGM = Hepatitis B core antibody, IgM Comment: HAVT = Hepatitis A antibody, Total Comment: HAV IGM = Hepatitis A antibody, IgM Comment: HCVAB = Hepatitis C antibody Comment: HCV INDX = Hepatitis C ab, Signal/Cut-off ratio Comment: Comment: HEPATITIS BS AG (12-26-2013 17:55) Hepatit Negativ Negativ complet is B s 014 e e ed Ag 17:55 Comment: Hepatitis Virus Panel Legend Comment: Comment: HBSAB = Hepatitis B surface antibody Qualitative Comment: HBSCON = Hepatitis B surface antibody Concentration Comment: HBSAG = Hepatitis B surface antigen Comment: HBCAB = Hepatitis B core antibody, Total Comment: HBC IGM = Hepatitis B core antibody, IgM Comment: HAVT = Hepatitis A antibody, Total Comment: HAV IGM = Hepatitis A antibody, IgM Comment: HCVAB = Hepatitis C antibody Comment: HCV INDX = Hepatitis C ab, Signal/Cut-off ratio Comment: Comment: CBC W/DIFF (12-26-2013 17:55) Basophi 0.6 % 0.0-2.0 complet ls % 014 ed 17:55 Basophi 0.1 X 0.0-0.1 complet l Count 014 10\S\3 ed 17:55 Eosinop 0.0 X 0.0-0.8 complet hil 014 10\S\3 ed Count 17:55 Monocyt 0.6 X 0.2-1.2 complet e Count 014 10\S\3 ed 17:55 Neutrop 6.6 X 1.5-7.1 complet hil 014 10\S\3 ed Count 17:55 Lymphoc 15.6 % 20.0-51 complet ytes % 014 .0 ed 17:55 Neutrop 76.3 % 42.0-75 complet hils % 014 .0 ed 17:55 MPV 9.2 fl 6.2-10. complet 014 6 ed 17:55 RDW 13.7 % 12.0-15 complet 014 .0 ed 17:55 MCV 87.9 fl 81.0-99 complet 014 .0 ed 17:55 Monocyt 7.0 % 0.0-13. complet es % 014 0 ed 17:55 Lymphoc 1.3 X 0.7-4.3 complet yte 014 10\S\3 ed Count 17:55 Platele 315 X 130-400 complet t 014 10\S\3 ed 17:55 Hematoc 41.0 % 37.0-47 complet rit 014 .0 ed 17:55 Hemoglo 13.8 12.0-16 complet bin 014 gm/dL .0 ed 17:55 MCHC 33.7 32.0-37 complet 014 gm/dL .0 ed 17:55 MCH 2 29.6 pg 27.0-32 complet 014 .0 ed 17:55 RBC 4.66 X 4.20-5. complet 014 10\S\6 40 ed 17:55 WBC 8.6 X 3.5-9.6 complet 014 10\S\3 ed 17:55 Eosinop 0.5 % 0.0-6.0 complet hils % 014 ed 17:55 TYPE AND SCREEN 2 CELL PANEL (12-26-2013 17:55) ABO/RH A complet TYPING 014 Positiv ed 17:55 e Antibod NEGATIV complet y 014 E ed Screen 17:55
--- OUTSIDE RECORDS SUMMARY | 2017-03-25 02:42 | External Medical Summary Rpt | CCD ---
Demographics Home Phone Preferred Language Swedish Marital Status Unknown Restorationism Affiliation Unknown Race Unknown Ethnic Group Unknown Author Author , LEANNE Organization LEANNE Address Unknown Phone [email or web address] Purpose Continuity of Care Document - 12-26-2013 [...] 017 Turbid ed nce 01:40 L determi [facility] DRUGS OF ABUSE SCREEN (7 TEST) (06-16-2014 [...] 1.025 1.016-1 complet c 015 .022 ed Deridder 02:01 [facility] HAZY CLEAR complet nce 015 [...] 1.015 1.016-1 complet c 015 .022 ed Deridder 16:47 [facility] SL HAZY CLEAR complet nce [...] 1.015 1.016-1 complet c 015 .022 ed Deridder 22:13 [facility] 06-09-2 SL HAZY CLEAR complet [...] 1.015 1.016-1 complet c 015 .022 ed Deridder 15:00 [facility] 02-18-2 HAZY CLEAR complet nce [...] 1.020 1.016-1 complet c 015 .022 ed Deridder 23:46 [facility] 11-2 CLEAR CLEAR complet nce [...] 1.010 1.016-1 complet c 015 .022 ed Deridder 15:25 [facility] 02-02-2 HAZY CLEAR complet nce [...] 1.005 1.016-1 complet c 015 .022 ed Deridder 18:00 [facility] 2 SL HAZY CLEAR complet [...] 1.015 1.016-1 complet c 014 .022 ed Deridder 14:19 [facility] 12-29-2 HAZY CLEAR complet nce [...] 1.015 1.016-1 complet c 014 .022 ed Deridder 14:46 Color 12-15-2 YELLOW YELLOW, complet 014 [...] 1.020 1.016-1 complet c 014 .022 ed Deridder 13:43 [facility] 12-13-2 SL HAZY CLEAR complet [...] Comment: Comment: Test Performed by: Comment: [facility] Comment: [address] [place] [address] Comment: Emergency Room Physician: Mike Rehman M.D. URINALYSIS W/MICRO (02-20-2014 13:17) [...] 1.020 1.016-1 complet c 014 .022 ed Deridder 13:17 Ketones NEGATIV NEGATIV complet 014 E [...] 1.025 1.016-1 complet c 014 .022 ed Deridder 18:00 Crystal 2-5 NONE complet s 014 [...] states that reflex Comment: supplemental testing of nwulcomrq-slnl-uomfic ve samples can be limited Comment: to [...]
--- OUTSIDE RECORDS SUMMARY | 2017-03-25 02:43 | External Medical Summary Rpt | CCD ---
Demographics Preferred Language Divehi Marital Status Unknown Adventism Affiliation Unknown Race Unknown Ethnic Group Unknown Author Author , LEANNE PERDOMO Address Unknown Phone Immunization No patient found.
--- OUTSIDE RECORDS SUMMARY | 2017-03-25 02:43 | External Medical Summary Rpt | CCD ---
Author Author [employer] Organization [employer] Address Unknown Phone Unavailable Purpose Continuity of Care Document - through 2016
--- OUTSIDE RECORDS SUMMARY | 2017-03-25 02:43 | External Medical Summary Rpt | CCD ---
Demographics Preferred Language Irish Marital Status Unknown Caodaism Affiliation Unknown Race Unknown Ethnic Group Unknown Author Author , LEANNE PERDOMO Address Unknown Phone Immunization No patient found.
--- OUTSIDE RECORDS SUMMARY | 2017-03-25 02:47 | External Medical Summary Rpt ---
Author Author GITALIN Ferrari, [employer] Organization [employer] Address Unknown Phone Unavailable Results Choriogonadotropin.beta subunit [Units] in 24 hour Urine Observa Value Referen Units Interpr Notes Date tion ce etation Range Choriogon NEG No No No Mar 6 adotropin informati informati informati 2016 1:40 .beta on in on in on in AM subunit source source source [Units] data data data in [address] Spine Lumbar w/o Contrast Observa Value Referen Units Interpr Notes Date tion ce etation Range TEXT [employer] No No No No August 25 DIAGNOS t Order informa informa informa informa 2016 IS tion in tion in tion in tion in 3:49 PM BATTERY Descrip source source source source tion: data data data data CT L-SPINE WITHOUT CONTRAS T\.br\\ .br\\.b r\CT OF THE LUMBAR SPINE WITHOUT CONTRAS T, 6\.br\\ .br\Ali gnment of the lumbar spine is anatomi c. There is no evidenc e of acute fractur e, or disloca tion. The heights of the vertebr al bodies are well preserv ed. There are central disk bulges at L4-L5 and L5-S1. There is associa junaa mild to moderat e central canal stenosi s at L4-L5 with mild narrowi ng of the left lateral recess. There is minimal central canal narrowi ng at L5-L1. The include d portion of the retrope ritoneu m is within normal limits. \.br\\. br\ IMPRESS ION:\.b r\\.br\ 1. Central disk bulges at L4-L5 and L5-S1 with resulta nt mild to moderat e narrowi ng of the central canal at the L4-L5 level.\ .br\\.b r\2. No evidenc e of acute fractur e, or disloca tion.\. br\\.br \ END OF REPORT* *\.br\\ .br\Jamie Rodriguez M.D.\.b r\\.br\ Dictate d: 6 4:16 PM\.br\ \.br\Tr anscrib ed: 6 4:31 PM\.br\ \.br\ * Final Report \.br \\.br\D ictated : Atilio Rodriguez M.D. 4:16 pm\.br\ \.br\Tr anscrib ed by: CS 4:34 pm\.br\ \.br\Au thentic ated by: Atilio Rodriguez M.D. 10:26 am\.br\ \.br\ URINALYSIS COMPLETE Observa Value Referen Units Interpr Notes Date tion ce etation Range Color RED No No No No August 25 of informa informa informa informa 2016 Urine tion in tion in tion in tion in 3:39 PM source source source source data data data data Clarity CLOUDY No No No No August 25 of informa informa informa informa 2016 Urine tion in tion in tion in tion in 3:39 PM source source source source data data data data Glucose NEGATIV NEGATIV MG/DL No No August 25 E E informa informa 2015 [Presen tion in tion in 3:39 PM ce] in source source Urine data data by Automat ed test strip Bilirub NEGATIV NEGATIV No No No August 25 in E E informa informa informa 2015 [Presen tion in tion in tion in 3:39 PM ce] in source source source Urine data data data by Automat ed test strip Ketones TRACE NEGATIV MG/DL Abnorma No August 25 E l informa 2015 [Presen tion in 3:39 PM ce] in source Urine data by Automat ed test strip Specifi 1.030 1.006 - No No No August 25 c 1.035 informa informa informa 2016 gravity tion in tion in tion in 3:39 PM of source source source Urine data data data by Automat ed test strip Erythro LARGE NEGATIV No Abnorma No August 25 cytes E informa l informa 2016 [Presen tion in tion in 3:39 PM ce] in source source Urine data data by Automat ed pH of 6.0 5.0 - No No No August 25 Urine 9.0 informa informa informa 2016 by tion in tion in tion in 3:39 PM Automat source source source ed test data data data strip Protein 30 NEGATIV MG/DL No No August 25 E informa informa 2016 [Presen tion in tion in 3:39 PM ce] in source source Urine data data by Automat ed test strip UROBILI 0.2 0.2 - E.U./DL No No August 25 NOGEN 1.0 informa informa 2016 tion in tion in 3:39 PM source source data data Nitrate NEGATIV NEGATIV No No No August 25 E E informa informa informa 2016 [Presen tion in tion in tion in 3:39 PM ce] in source source source Urine data data data Leukocy SMALL NEGATIV No Abnorma No August 25 cony E informa l informa 2016 [Presen tion in tion in 3:39 PM ce] in source source Urine data data by Automat ed Erythro TNTC 0 - 4 /HPF Abnorma No August 25 cytes l informa 2016 [#/area tion in 3:39 PM ] in source Urine data sedimen t by Microsc opy high power field WBC 13 0 - 5 /HPF High No August 25 COUNT informa 2016 tion in 3:39 PM source data Epithel 4 0 - 6 /HPF No No August 25 ial informa informa 2016 cells tion in tion in 3:39 PM [Presen source source ce] in data data Urine sedimen t by Light microsc opy Bacteri NEGATIV NEGATIV /HPF No BACTERI August 25 a E E informa A 2015 [#/area tion in INTERPR 3:39 PM ] in source ETATION Urine data :NEGATI sedimen VE t by <=599/u Microsc lTRACE opy high >=600, power <=1199/ field ul1+ >=1200, <=2399/ ul2+ >=2400, <=3599/ ul3+ >=3600, <=4799/ ul4+ >=4800/ ul Hyaline 2 0 - 4 /LPF No No August 25 casts informa informa 2015 [#/area tion in tion in 3:39 PM ] in source source Urine data data sedimen t by Microsc opy high power field URINE HCG Observa Value Referen Units Interpr Notes Date tion ce etation Range Choriog NEGATIV No No No No August 25 onadotr E informa informa informa informa 2016 opin tion in tion in tion in tion in 3:39 PM (pregna source source source source ncy data data data data test) [Presen ce] in Urine CBC W/DIFF Observa Value Referen Units Interpr Notes Date tion ce etation Range Leukocy 9.3 3.5 - X_10\S\ Normal No Jul 21 cony 9.6 3 2014 [#/volu tion in 6:58 AM me] source correct data ed for nucleat ed erythro cytes in Blood by Automat ed count Erythro 3.23 4.20 - X_10\S\ Low No Jul 21 cytes 5.40 6 2014 [#/volu tion in 6:58 AM me] in source Blood data by Automat ed count Hemoglo 10.1 12.0 - gm/dL Low No Jul 21 bin 16.0 2014 [Mass/v tion in 6:58 AM olume] source in data Blood Hematoc 29.3 37.0 - % Low No Jul 21 rit 47.0 2014 [Volume tion in 6:58 AM source Fractio data n] of Blood by Automat ed count Platele 144 130 - X_10\S\ Normal No Jul 21 ts 400 3 inform2014 [#/volu tion in 6:58 AM me] in source Blood data by Automat ed count Erythro 31.2 27.0 - pg Normal No Jul 21 cyte 32.0 2014 mean tion in 6:58 AM corpusc source ular data hemoglo bin [Entiti c mass] by Automat ed count Erythro 34.4 32.0 - gm/dL Normal No Jul 21 cyte 37.0 inform2014 mean tion in 6:58 AM corpusc source ular data hemoglo bin concent ration [Mass/v olume] by Automat ed count Erythro 90.7 81.0 - fl Normal No Jul 21 cyte 99.0 informa 2014 mean tion in 6:58 AM corpusc source ular data volume [Entiti c volume] by Automat ed count Erythro 13.8 12.0 - % Normal No Jul 21 cyte 15.0 informa 2015 distrib tion in 6:58 AM ution source width data [Ratio] by Automat ed count Platele 10.8 6.2 - fl High No Jul 21 t mean 10.6 informa 2015 volume tion in 6:58 AM [Entiti source c data volume] in Blood by Automat ed count Neutrop 77.0 42.0 - % High No Jul 21 hils/10 75.0 informa 2015 0 tion in 6:58 AM leukocy source cony in data Blood by Automat ed count Lymphoc 13.8 20.0 - % Low No Jul 21 ytes/10 51.0 informa 2015 0 tion in 6:58 AM leukocy source cony in data Blood by Automat ed count Monocyt 8.1 0.0 - % Normal No Jul 21 es/100 13.0 informa 2014 leukocy tion in 6:58 AM cony in source Blood data by Automat ed count Eosinop 0.8 0.0 - % Normal No Jul 21 hils/10 6.0 informa 2014 0 tion in 6:58 AM leukocy source cony in data Blood by Automat ed count Basophi 0.3 0.0 - % Normal No Jul 21 ls/100 2.0 informa 2014 leukocy tion in 6:58 AM cony in source Blood data by Automat ed count Neutrop 7.2 1.5 - X_10\S\ High No Jul 21 hils 7.1 3 inform2014 [#/volu tion in 6:58 AM me] in source Blood data by Automat ed count Monocyt 0.8 0.2 - X_10\S\ Normal No Jul 21 es 1.2 3 inform2014 [#/volu tion in 6:58 AM me] in source Blood data by Automat ed count Eosinop 0.1 0.0 - X_10\S\ Normal No Jul 3 hils 0.8 3 inform2014 [#/volu tion in 6:58 AM me] in source Blood data by Automat ed count Basophi 0.0 0.0 - X_10\S\ Normal No Apr 3 ls 0.1 3 2014 [#/volu tion in 6:58 AM me] in source Blood data by Automat ed count Lymphoc 1.3 0.7 - X_10\S\ Normal No Apr 3 ytes 4.3 3 2014 [#/volu tion in 6:58 AM me] in source Blood data by Automat ed count METHADONE,URINE Observa Value Referen Units Interpr Notes Date tion ce etation Range Methado NEGATIV NEGATIV No Normal No Apr 2 ne E E,NEG. informa informa 2014 [Presen tion in tion in 10:32 ce] in source source AM Urine data data by Screen method DRUGS OF ABUSE SCREEN (7 TEST) Observa Value Referen Units Interpr Notes Date tion ce etation Range Cannabi NEGATIV NEGATIV No Normal No Apr 2 noids E E,NEG. informa informa 2014 [Presen tion in tion in 10:31 ce] in source source AM Urine data data by Screen method Ampheta NEGATIV NEGATIV No Normal No Apr 2 mines E E,NEG. informa informa 2014 [Presen tion in tion in 10:31 ce] in source source AM Urine data data by Screen method Phencyc NEGATIV NEGATIV No Normal No Apr 2 lidine E E,NEG. informa informa 2014 [Presen tion in tion in 10:31 ce] in source source AM Urine data data by Screen method Barbitu NEGATIV NEGATIV No Normal No Apr 2 rates E E,NEG. informa informa 2014 [Presen tion in tion in 10:31 ce] in source source AM Urine data data by Screen method Benzoyl NEGATIV NEGATIV No Normal No Apr 2 ecgonin E E,NEG. informa informa 2014 e tion in tion in 10:31 [Presen source source AM ce] in data data Urine by Screen method Benzodi NEGATIV NEGATIV No Normal No Apr 2 azepine E E,NEG. informa informa 2014 s tion in tion in 10:31 [Presen source source AM ce] in data data Urine by Screen method Opiates NEGATIV NEGATIV No Normal DRUG Apr 2 E E,NEG. informa SCREEN 2014 [Presen tion in CUTOFF 10:31 ce] in source LEVELS: AM Urine data PCP\.sk by 5\\.sk5 Screen \- method 25 ng/mlBE NZO \.sk5\- \.sk5\2 00 ng/mlCO C\.sk5\ \.sk5\- \.sk5\3 00 ng/mlAM P\.sk5\ \.sk5\- \.sk5\1 000 ng/mlTH C\.sk5\ \.sk5\- \.sk5\5 0 ng/mlOP I\.sk5\ \.sk5\- \.sk5\3 00 ng/mlBA RB - 200 ng/mlME TDON \.sk5\- \.sk5\3 00 ng/mlPR OPOXY - 300 ng/mlME THAQ - 300 ng/ml SUBOXONE, IN HOUSE Observa Value Referen Units Interpr Notes Date tion ce etation Range BUPRENO NEGATIV NEGATIV No Normal No Apr 2 RPHINE/ E E informa informa 2014 tion in tion in 10:03 SUBOXAN source source AM E data data URINALYSIS W/MICRO Observa Value Referen Units Interpr Notes Date tion ce etation Range Color YELLOW YELLOW, No Normal No Apr 2 of STRAW,C informa informa 2014 Urine OLORLES tion in tion in 9:31 AM by Auto S,PALE source source YELLOW data data Clarity SL HAZY CLEAR No Abnorma No Apr 2 of informa l informa 2014 Urine tion in tion in 9:31 AM source source data data Specifi 1.020 1.016 - No Normal No Apr 2 c 1.022 informa informa 2014 gravity tion in tion in 9:31 AM of source source Urine data data by Automat ed test strip pH of 6.5 5.0 - No Normal No Apr 2 Urine 7.0 informa informa 2015 by tion in tion in 9:31 AM Automat source source ed test data data strip Leukocy NEGATIV NEGATIV No Normal No Apr 2 te E E informa informa 2014 esteras tion in tion in 9:31 AM e source source [Presen data data ce] in Urine by Automat ed test strip Nitrite NEGATIV NEGATIV No Normal No Apr 2 E E informa informa 2014 [Presen tion in tion in 9:31 AM ce] in source source Urine data data by Automat ed test strip Protein NEGATIV NEGATIV No Normal No Apr 2 E E informa informa 2014 [Presen tion in tion in 9:31 AM ce] in source source Urine data data by Automat ed test strip Glucose NEGATIV NEGATIV No Normal No Apr 2 E E informa informa 2014 [Presen tion in tion in 9:31 AM ce] in source source Urine data data by Automat ed test strip Ketones NEGATIV NEGATIV No Normal No Apr 2 E E informa informa 2014 [Presen tion in tion in 9:31 AM ce] in source source Urine data data by Automat ed test strip Urobili NEGATIV 0 - 1 mg/dL Normal No Apr 2 nogen E informa 2014 [Mass/v tion in 9:31 AM olume] source in data Urine by Automat ed test strip Bilirub NEGATIV NEGATIV No Normal No Apr 2 in E E informa informa 2014 [Presen tion in tion in 9:31 AM ce] in source source Urine data data by Automat ed test strip Erythro NEGATIV NEGATIV No Normal No Apr 2 cytes E E informa informa 2014 [#/volu tion in tion in 9:31 AM me] in source source Urine data data by Automat ed test strip UA WBC 2-5 0 - 2 No Abnorma No Apr 2 informa l informa 2014 tion in tion in 9:31 AM source source data data UA RBC 0-2 0 - 2 No Normal No Apr 2 informa informa 2014 tion in tion in 9:31 AM source source data data Bacteri 3+ NONE No Abnorma No Apr 2 a SEEN informa l informa 2014 tion in tion in 9:31 AM source source data data Epithel 5-10 NONE No Abnorma No Apr 2 ial SQUAMOU SEEN informa l informa 2015 Cells S tion in tion in 9:31 AM EPITHEL source source IAL data data CELLS Mucus TRACE NONE No Abnorma No Apr 2 SEEN informa l informa 2014 tion in tion in 9:31 AM source source data data TYPE AND SCREEN 2 CELL PANEL Observa Value Referen Units Interpr Notes Date tion ce etation Range ABO/RH A No No No No Apr 2 TYPING Positiv informa informa informa informa 2014 e tion in tion in tion in tion in 10:55 source source source source AM data data data data CBC W/DIFF Observa Value Referen Units Interpr Notes Date tion ce etation Range Leukocy 9.8 3.5 - X_10\S\ High No Jul 2 cony 9.6 3 inform2014 [#/volu tion in 9:07 AM me] source correct data ed for nucleat ed erythro cytes in Blood by Automat ed count Erythro 4.16 4.20 - X_10\S\ Low No Jul 20 cytes 5.40 6 inform2014 [#/volu tion in 9:07 AM me] in source Blood data by Automat ed count Hemoglo 12.8 12.0 - gm/dL Normal No Jul 20 bin 16.0 inform2014 [Mass/v tion in 9:07 AM olume] source in data Blood Hematoc 37.4 37.0 - % Normal No Jul 20 rit 47.0 informa 2014 [Volume tion in 9:07 AM source Fractio data n] of Blood by Automat ed count Platele 172 130 - X_10\S\ Normal No Jul 20 ts 400 3 inform2014 [#/volu tion in 9:07 AM me] in source Blood data by Automat ed count Erythro 30.9 27.0 - pg Normal No Jul 2 cyte 32.0 informa 2014 mean tion in 9:07 AM corpusc source ular data hemoglo bin [Entiti c mass] by Automat ed count Erythro 34.3 32.0 - gm/dL Normal No Jul 2 cyte 37.0 informa 2014 mean tion in 9:07 AM corpusc source ular data hemoglo bin concent ration [Mass/v olume] by Automat ed count Erythro 90.0 81.0 - fl Normal No Jul 2 cyte 99.0 informa 2014 mean tion in 9:07 AM corpusc source ular data volume [Entiti c volume] by Automat ed count Erythro 13.8 12.0 - % Normal No Jul 2 cyte 15.0 informa 2014 distrib tion in 9:07 AM ution source width data [Ratio] by Automat ed count Platele 10.6 6.2 - fl Normal No Apr 2 t mean 10.6 inform2014 volume tion in 9:07 AM [Entiti source c data volume] in Blood by Automat ed count Neutrop 78.8 42.0 - % High No Apr 2 hils/10 75.0 informa 2014 0 tion in 9:07 AM leukocy source cony in data Blood by Automat ed count Lymphoc 11.8 20.0 - % Low No Apr 2 ytes/10 51.0 informa 2014 0 tion in 9:07 AM leukocy source cony in data Blood by Automat ed count Monocyt 8.3 0.0 - % Normal No Apr 2 es/100 13.0 informa 2014 leukocy tion in 9:07 AM cony in source Blood data by Automat ed count Eosinop 0.9 0.0 - % Normal No Apr 2 hils/10 6.0 informa 2014 0 tion in 9:07 AM leukocy source cony in data Blood by Automat ed count Basophi 0.2 0.0 - % Normal No Apr 2 ls/100 2.0 informa 2014 leukocy tion in 9:07 AM cony in source Blood data by Automat ed count Neutrop 7.8 1.5 - X_10\S\ High No Apr 2 hils 7.1 3 2014 [#/volu tion in 9:07 AM me] in source Blood data by Automat ed count Monocyt 0.8 0.2 - X_10\S\ Normal No Apr 2 es 1.2 3 2014 [#/volu tion in 9:07 AM me] in source Blood data by Automat ed count Eosinop 0.1 0.0 - X_10\S\ Normal No Apr 2 hils 0.8 3 2014 [#/volu tion in 9:07 AM me] in source Blood data by Automat ed count Basophi 0.0 0.0 - X_10\S\ Normal No Apr 2 ls 0.1 3 2014 [#/volu tion in 9:07 AM me] in source Blood data by Automat ed count Lymphoc 1.2 0.7 - X_10\S\ Normal No Apr 2 ytes 4.3 3 informa 2014 [#/volu tion in 9:07 AM me] in source Blood data by Automat ed count DRUGS OF ABUSE SCREEN (7 TEST) Observa Value Referen Units Interpr Notes Date tion ce etation Range Cannabi NEGATIV NEGATIV No Normal No Apr 1 noids E E,NEG. informa informa 2014 [Presen tion in tion in 12:40 ce] in source source PM Urine data data by Screen method Ampheta NEGATIV NEGATIV No Normal No Apr 1 mines E E,NEG. informa informa 2014 [Presen tion in tion in 12:40 ce] in source source PM Urine data data by Screen method Phencyc NEGATIV NEGATIV No Normal No Apr 1 lidine E E,NEG. informa informa 2014 [Presen tion in tion in 12:40 ce] in source source PM Urine data data by Screen method Barbitu NEGATIV NEGATIV No Normal No Apr 1 rates E E,NEG. informa informa 2014 [Presen tion in tion in 12:40 ce] in source source PM Urine data data by Screen method Benzoyl NEGATIV NEGATIV No Normal No Apr 1 ecgonin E E,NEG. informa informa 2014 e tion in tion in 12:40 [Presen source source PM ce] in data data Urine by Screen method Benzodi NEGATIV NEGATIV No Normal No Apr 1 azepine E E,NEG. informa informa 2014 s tion in tion in 12:40 [Presen source source PM ce] in data data Urine by Screen method Opiates NEGATIV NEGATIV No Normal DRUG Apr 1 E E,NEG. informa SCREEN 2014 [Presen tion in CUTOFF 12:40 ce] in source LEVELS: PM Urine data PCP\.sk by 5\\.sk5 Screen \- method 25 ng/mlBE NZO \.sk5\- \.sk5\2 00 ng/mlCO C\.sk5\ \.sk5\- \.sk5\3 00 ng/mlAM P\.sk5\ \.sk5\- \.sk5\1 000 ng/mlTH C\.sk5\ \.sk5\- \.sk5\5 0 ng/mlOP I\.sk5\ \.sk5\- \.sk5\3 00 ng/mlBA RB - 200 ng/mlME TDON \.sk5\- \.sk5\3 00 ng/mlPR OPOXY - 300 ng/mlME THAQ - 300 ng/ml TYPE AND SCREEN 2 CELL PANEL Observa Value Referen Units Interpr Notes Date tion ce etation Range ABO/RH A No No No No Apr 1 TYPING Positiv informa informa informa informa 2014 e tion in tion in tion in tion in 11:30 source source source source AM data data data data COMPREHENSIVE METABOLIC PANEL Observa Value Referen Units Interpr Notes Date tion ce etation Range Glucose 92 70 - 99 mg/dL Normal No Apr 1 informa 2014 [Mass/v tion in 11:19 olume] source AM in data Serum or Plasma Urea 8 7 - 18 mg/dL Normal No Apr nitroge informa 2014 n tion in 11:19 [Mass/v source AM olume] data in Serum or Plasma Creatin 0.8 0.6 - mg/dL Normal No Jul 1 ine 1.3 informa 2014 [Mass/v tion in 11:19 olume] source AM in data Serum or Plasma Sodium 141 136 - mEq/L Normal No Apr 1 [Moles/ 145 informa 2014 volume] tion in 11:19 in source AM Serum data or Plasma Potassi 3.9 3.5 - mEq/L Normal No Apr 1 um 5.1 informa 2014 [Moles/ tion in 11:19 volume] source AM in data Serum or Plasma Chlorid 107 98 - mEq/L Normal No Apr e 107 informa 2014 [Moles/ tion in 11:19 volume] source AM in data Serum or Plasma Carbon 24 22 - 29 mmol/L Normal No Apr 1 dioxide informa 2014 , total tion in 11:19 source AM [Moles/ data volume] in Serum or Plasma Calcium 8.0 8.5 - mg/dL Low No Apr 1 10.1 informa 2015 [Mass/v tion in 11:19 olume] source AM in data Serum or Plasma Protein 6.1 6.4 - gm/dL Low No Apr 1 8.2 informa 2014 [Mass/v tion in 11:19 olume] source AM in data Serum or Plasma Albumin 2.6 3.4 - gm/dL Low No Apr 1 5.0 informa 2014 [Mass/v tion in 11:19 olume] source AM in data Serum or Plasma by Bromcre porter purple (BCP) dye binding method Alkalin 80 50 - U/L Normal No Apr 1 e 136 informa 2014 phospha tion in 11:19 tase source AM [Enzyma data tic activit y/volum e] in Serum or Plasma Alanine 22 3 - 50 U/L Normal No Apr 1 inform2014 aminotr tion in 11:19 ansfera source AM se data [Enzyma tic activit y/volum e] in Serum or Plasma by With P-5'-P Asparta 16 15 - 37 U/L Normal No Apr 1 te informa 2014 aminotr tion in 11:19 ansfera source AM se data [Enzyma tic activit y/volum e] in Serum or Plasma by With P-5'-P Bilirub 0.16 0.0 - mg/dL Normal No Apr 1 in.tota 1.0 informa 2014 l tion in 11:19 [Mass/v source AM olume] data in Serum or Plasma Creatin 10 No No No No Apr 1 ine/Ure informa informa informa informa 2014 a tion in tion in tion in tion in 11:19 nitroge source source source source AM n [Mass data data data data ratio] in Serum or Plasma Albumin 0.7 No No No No Apr 1 /Globul informa informa informa informa 2014 in tion in tion in tion in tion in 11:19 [Mass source source source source AM ratio] data data data data in Serum or Plasma CBC W/DIFF Observa Value Referen Units Interpr Notes Date tion ce etation Range Leukocy 10.7 3.5 - X_10\S\ High No Apr 1 cony 9.6 3 inform2014 [#/volu tion in 11:04 me] source AM correct data ed for nucleat ed erythro cytes in Blood by Automat ed count Erythro 4.19 4.20 - X_10\S\ Low No Apr 1 cytes 5.40 6 inform2014 [#/volu tion in 11:04 me] in source AM Blood data by Automat ed count Hemoglo 13.0 12.0 - gm/dL Normal No Jul 19 bin 16.0 informa 2014 [Mass/v tion in 11:04 olume] source AM in data Blood Hematoc 37.6 37.0 - % Normal No Jul 19 rit 47.0 informa 2014 [Volume tion in 11:04 source AM Fractio data n] of Blood by Automat ed count Platele 182 130 - X_10\S\ Normal No Jul 19 ts 400 3 informa 2014 [#/volu tion in 11:04 me] in source AM Blood data by Automat ed count Erythro 30.9 27.0 - pg Normal No Jul 19 cyte 32.0 informa 2014 mean tion in 11:04 corpusc source AM ular data hemoglo bin [Entiti c mass] by Automat ed count Erythro 34.5 32.0 - gm/dL Normal No Jul 19 cyte 37.0 informa 2014 mean tion in 11:04 corpusc source AM ular data hemoglo bin concent ration [Mass/v olume] by Automat ed count Erythro 89.7 81.0 - fl Normal No Jul 19 cyte 99.0 informa 2014 mean tion in 11:04 corpusc source AM ular data volume [Entiti c volume] by Automat ed count Erythro 13.6 12.0 - % Normal No Jul 19 cyte 15.0 informa 2014 distrib tion in 11:04 ution source AM width data [Ratio] by Automat ed count Platele 10.4 6.2 - fl Normal No Jul 19 t mean 10.6 informa 2014 volume tion in 11:04 [Entiti source AM c data volume] in Blood by Automat ed count Neutrop 78.3 42.0 - % High No Apr hils/10 75.0 informa 2015 0 tion in 11:04 leukocy source AM cony in data Blood by Automat ed count Lymphoc 11.1 20.0 - % Low No Jul 19 ytes/10 51.0 informa 2015 0 tion in 11:04 leukocy source AM cony in data Blood by Automat ed count Monocyt 8.2 0.0 - % Normal No Apr es/100 13.0 informa 2015 leukocy tion in 11:04 cony in source AM Blood data by Automat ed count Eosinop 0.4 0.0 - % Normal No Apr 1 hils/10 6.0 2014 0 tion in 11:04 leukocy source AM cony in data Blood by Automat ed count Basophi 2.0 0.0 - % Normal No Apr 1 ls/100 2.0 2014 leukocy tion in 11:04 cony in source AM Blood data by Automat ed count Neutrop 8.4 1.5 - X_10\S\ High No Apr hils 7.1 3 2014 [#/volu tion in 11:04 me] in source AM Blood data by Automat ed count Monocyt 0.9 0.2 - X_10\S\ Normal No Apr es 1.2 3 2014 [#/volu tion in 11:04 me] in source AM Blood data by Automat ed count Eosinop 0.0 0.0 - X_10\S\ Normal No Apr hils 0.8 3 2014 [#/volu tion in 11:04 me] in source AM Blood data by Automat ed count Basophi 0.2 0.0 - X_10\S\ High No Apr 1 ls 0.1 3 2014 [#/volu tion in 11:04 me] in source AM Blood data by Automat ed count Lymphoc 1.2 0.7 - X_10\S\ Normal No Apr ytes 4.3 3 2014 [#/volu tion in 11:04 me] in source AM Blood data by Automat ed count URINALYSIS W/MICRO Observa Value Referen Units Interpr Notes Date tion ce etation Range Color STRAW YELLOW, No Normal No Jul 17 of STRAW,C informa informa 2014 Urine OLORLES tion in tion in 4:53 AM by Auto S,PALE source source YELLOW data data Clarity HAZY CLEAR No Abnorma No Jun 30 of informa l informa 2014 Urine tion in tion in 4:53 AM source source data data Specifi 1.025 1.016 - No High No Jul 17 c 1.022 informa informa 2015 gravity tion in tion in 4:53 AM of source source Urine data data by Automat ed test strip pH of 6.0 5.0 - No Normal No Jul 17 Urine 7.0 informa informa 2015 by tion in tion in 4:53 AM Automat source source ed test data data strip Leukocy NEGATIV NEGATIV No Normal No Jul 17 te E E informa informa 2015 esteras tion in tion in 4:53 AM e source source [Presen data data ce] in Urine by Automat ed test strip Nitrite NEGATIV NEGATIV No Normal No Jul 17 E E informa informa 2014 [Presen tion in tion in 4:53 AM ce] in source source Urine data data by Automat ed test strip Protein NEGATIV NEGATIV No Normal No Jul 17 E E informa informa 2014 [Presen tion in tion in 4:53 AM ce] in source source Urine data data by Automat ed test strip Glucose NEGATIV NEGATIV No Normal No Jul 17 E E informa informa 2014 [Presen tion in tion in 4:53 AM ce] in source source Urine data data by Automat ed test strip Ketones NEGATIV NEGATIV No Normal No Jul 17 E E informa informa 2014 [Presen tion in tion in 4:53 AM ce] in source source Urine data data by Automat ed test strip Urobili NEGATIV 0 - 1 mg/dL Normal No Jul 17 nogen E informa 2014 [Mass/v tion in 4:53 AM olume] source in data Urine by Automat ed test strip Bilirub NEGATIV NEGATIV No Normal No Jul 17 in E E informa informa 2014 [Presen tion in tion in 4:53 AM ce] in source source Urine data data by Automat ed test strip Erythro NEGATIV NEGATIV No Normal No Jul 17 cytes E E informa informa 2014 [#/volu tion in tion in 4:53 AM me] in source source Urine data data by Automat ed test strip UA WBC RARE 0 - 2 No Abnorma No Jul 17 informa l informa 2014 tion in tion in 4:53 AM source source data data UA RBC RARE 0 - 2 No Abnorma No Jul 17 informa l informa 2014 tion in tion in 4:53 AM source source data data Bacteri 3+ NONE No Abnorma No Jul 17 a SEEN informa l informa 2014 tion in tion in 4:53 AM source source data data Epithel 2-5 NONE No Abnorma No Mar 30 ial SEEN informa l informa 2014 Cells tion in tion in 4:53 AM source source data data Mucus 1+ NONE No Abnorma No Mar 30 SEEN informa l informa 2014 tion in tion in 4:53 AM source source data data Casts NONE NONE No Normal No Mar 30 SEEN SEEN informa informa 2014 tion in tion in 4:53 AM source source data data Crystal NONE NONE No Normal No Mar 30 s SEEN SEEN informa informa 2014 tion in tion in 4:53 AM source source data data YEAST, NONE NONE No Normal No Mar 30 UA OBSERVE OBSERVE informa informa 2014 D D tion in tion in 4:53 AM source source data data AMORPHO NONE NONE No Normal No Mar 30 US SEEN SEEN informa informa 2014 SEDIMEN tion in tion in 4:53 AM T source source data data TRICHOM none No No No No Mar 30 ONAS informa informa informa informa 2014 tion in tion in tion in tion in 4:53 AM source source source source data data data data METHADONE,URINE Observa Value Referen Units Interpr Notes Date tion ce etation Range Methado NEGATIV NEGATIV No Normal No Mar 30 ne E E,NEG. informa informa 2014 [Presen tion in tion in 4:51 AM ce] in source source Urine data data by Screen method DRUGS OF ABUSE SCREEN (7 TEST) Observa Value Referen Units Interpr Notes Date tion ce etation Range Cannabi NEGATIV NEGATIV No Normal No Mar 30 noids E E,NEG. informa informa 2014 [Presen tion in tion in 4:51 AM ce] in source source Urine data data by Screen method Ampheta NEGATIV NEGATIV No Normal No Mar 30 mines E E,NEG. informa informa 2014 [Presen tion in tion in 4:51 AM ce] in source source Urine data data by Screen method Phencyc NEGATIV NEGATIV No Normal No Mar 30 lidine E E,NEG. informa informa 2014 [Presen tion in tion in 4:51 AM ce] in source source Urine data data by Screen method Barbitu NEGATIV NEGATIV No Normal No Mar 30 rates E E,NEG. informa informa 2014 [Presen tion in tion in 4:51 AM ce] in source source Urine data data by Screen method Benzoyl NEGATIV NEGATIV No Normal No Jul 17 ecgonin E E,NEG. informa informa 2014 e tion in tion in 4:51 AM [Presen source source ce] in data data Urine by Screen method Benzodi NEGATIV NEGATIV No Normal No Jul 17 azepine E E,NEG. informa informa 2014 s tion in tion in 4:51 AM [Presen source source ce] in data data Urine by Screen method Opiates NEGATIV NEGATIV No Normal DRUG Jul 17 E E,NEG. informa SCREEN 2014 [Presen tion in CUTOFF 4:51 AM ce] in source LEVELS: Urine data PCP\.sk by 5\\.sk5 Screen \- method 25 ng/mlBE NZO \.sk5\- \.sk5\2 00 ng/mlCO C\.sk5\ \.sk5\- \.sk5\3 00 ng/mlAM P\.sk5\ \.sk5\- \.sk5\1 000 ng/mlTH C\.sk5\ \.sk5\- \.sk5\5 0 ng/mlOP I\.sk5\ \.sk5\- \.sk5\3 00 ng/mlBA RB - 200 ng/mlME TDON \.sk5\- \.sk5\3 00 ng/mlPR OPOXY - 300 ng/mlME THAQ - 300 ng/ml SUBOXONE, IN HOUSE Observa Value Referen Units Interpr Notes Date ti ce etation Range BUPRENO NEGATIV NEGATIV No Normal No Jul 17 RPHINE/ E E informa informa 2014 tion in tion in 4:49 AM SUBOXAN source source E data data URINALYSIS W/MICRO Observa Value Referen Units Interpr Notes Date ti ce etation Range Color YELLOW YELLOW, No Normal No Jul 04 of STRAW,C informa informa 2014 Urine OLORLES tion in tion in 3:24 PM by Auto S,PALE source source YELLOW data data Clarity SL HAZY CLEAR No Abnorma No Jul 04 of informa l informa 2014 Urine tion in tion in 3:24 PM source source data data Specifi 1.015 1.016 - No Low No Jul 04 c 1.022 informa informa 2014 gravity tion in tion in 3:24 PM of source source Urine data data by Automat ed test strip pH of 8.0 5.0 - No High No Jul 04 Urine 7.0 informa informa 2015 by tion in tion in 3:24 PM Automat source source ed test data data strip Leukocy NEGATIV NEGATIV No Normal No Jul 04 te E E informa informa 2015 esteras tion in tion in 3:24 PM e source source [Presen data data ce] in Urine by Automat ed test strip Nitrite NEGATIV NEGATIV No Normal No Jul 04 E E informa informa 2014 [Presen tion in tion in 3:24 PM ce] in source source Urine data data by Automat ed test strip Protein NEGATIV NEGATIV No Normal No Jul 04 E E informa informa 2014 [Presen tion in tion in 3:24 PM ce] in source source Urine data data by Automat ed test strip Glucose NEGATIV NEGATIV No Normal No Jul 04 E E informa informa 2014 [Presen tion in tion in 3:24 PM ce] in source source Urine data data by Automat ed test strip Ketones NEGATIV NEGATIV No Normal No Jul 04 E E informa informa 2014 [Presen tion in tion in 3:24 PM ce] in source source Urine data data by Automat ed test strip Urobili NEGATIV 0 - 1 mg/dL Normal No Jul 04 nogen E informa 2014 [Mass/v tion in 3:24 PM olume] source in data Urine by Automat ed test strip Bilirub NEGATIV NEGATIV No Normal No Jul 04 in E E informa informa 2014 [Presen tion in tion in 3:24 PM ce] in source source Urine data data by Automat ed test strip Erythro NEGATIV NEGATIV No Normal No Jul 04 cytes E E informa informa 2014 [#/volu tion in tion in 3:24 PM me] in source source Urine data data by Automat ed test strip UA WBC Occ 0 - 2 No Abnorma No Jul 04 informa l informa 2014 tion in tion in 3:24 PM source source data data UA RBC NONE 0 - 2 No Abnorma No Jul 04 SEEN informa l informa 2014 tion in tion in 3:24 PM source source data data Bacteri TRACE NONE No Abnorma No Jul 04 a SEEN informa l informa 2014 tion in tion in 3:24 PM source source data data Epithel 10-20 NONE No Abnorma No Jul 04 ial SQUAMOU SEEN informa l informa 2014 Cells S tion in tion in 3:24 PM EPITHEL source source IAL data data CELLS YEAST, BUDDING NONE No Abnorma No Jul 04 UA YEAST OBSERVE informa l informa 2014 OBSERVE D tion in tion in 3:24 PM D source source data data AMORPHO 3+ NONE No Abnorma No Jul 04 US SEEN informa l informa 2014 SEDIMEN tion in tion in 3:24 PM T source source data data DRUGS OF ABUSE SCREEN (7 TEST) Observa Value Referen Units Interpr Notes Date tion ce etation Range Cannabi NEGATIV NEGATIV No Normal No Jul 04 noids E E,NEG. informa informa 2014 [Presen tion in tion in 3:19 PM ce] in source source Urine data data by Screen method Ampheta NEGATIV NEGATIV No Normal No Jul 04 mines E E,NEG. informa informa 2014 [Presen tion in tion in 3:19 PM ce] in source source Urine data data by Screen method Phencyc NEGATIV NEGATIV No Normal No Jul 04 lidine E E,NEG. informa informa 2014 [Presen tion in tion in 3:19 PM ce] in source source Urine data data by Screen method Barbitu NEGATIV NEGATIV No Normal No Jul 04 rates E E,NEG. informa informa 2014 [Presen tion in tion in 3:19 PM ce] in source source Urine data data by Screen method Benzoyl NEGATIV NEGATIV No Normal No Jul 04 ecgonin E E,NEG. informa informa 2014 e tion in tion in 3:19 PM [Presen source source ce] in data data Urine by Screen method Benzodi NEGATIV NEGATIV No Normal No Jul 04 azepine E E,NEG. informa informa 2014 s tion in tion in 3:19 PM [Presen source source ce] in data data Urine by Screen method Opiates NEGATIV NEGATIV No Normal DRUG Jul 04 E E,NEG. informa SCREEN 2014 [Presen tion in CUTOFF 3:19 PM ce] in source LEVELS: Urine data PCP\.sk by 5\\.sk5 Screen \- method 25 ng/mlBE NZO \.sk5\- \.sk5\2 00 ng/mlCO C\.sk5\ \.sk5\- \.sk5\3 00 ng/mlAM P\.sk5\ \.sk5\- \.sk5\1 000 ng/mlTH C\.sk5\ \.sk5\- \.sk5\5 0 ng/mlOP I\.sk5\ \.sk5\- \.sk5\3 00 ng/mlBA RB - 200 ng/mlME TDON \.sk5\- \.sk5\3 00 ng/mlPR OPOXY - 300 ng/mlME THAQ - 300 ng/ml METHADONE,URINE Observa Value Referen Units Interpr Notes Date tion ce etation Range Methado NEGATIV NEGATIV No Normal No Jul 04 ne E E,NEG. informa informa 2014 [Presen tion in tion in 3:19 PM ce] in source source Urine data data by Screen method SUBOXONE, IN HOUSE Observa Value Referen Units Interpr Notes Date tion ce etation Range BUPRENO NEGATIV NEGATIV No Normal No Jul 04 RPHINE/ E E informa informa 2014 tion in tion in 3:14 PM SUBOXAN source source E data data CULTURE, BETA STREP Observa Value Referen Units Interpr Notes Date tion ce etation Range Clinica Specime No No No No Jul 05 l n: informa informa informa informa 2014 Report OTHER-S tion in tion in tion in tion in 10:22 PECIFY source source source source PM ollecte data data data data d: 015 15:09St atus: Final Last Updated : 015 22:22CU L RES (Final) Negativ e for Beta Hemolyt ic Strep at 24 hrsNega tive for Beta Hemolyt ic Strep at 48 hrs URINALYSIS W/MICRO Observa Value Referen Units Interpr Notes Date tion ce etation Range Color DARK YELLOW, No Abnorma No Jul 03 of YELLOW STRAW,C informa l informa 2014 Urine OLORLES tion in tion in 3:30 PM by Auto S,PALE source source YELLOW data data Clarity SL HAZY CLEAR No Abnorma No Jul 03 of informa l informa 2014 Urine tion in tion in 3:30 PM source source data data Specifi 1.015 1.016 - No Low No Jul 03 c 1.022 informa informa 2014 gravity tion in tion in 3:30 PM of source source Urine data data by Automat ed test strip pH of 7.0 5.0 - No Normal No Jul 03 Urine 7.0 informa informa 2014 by tion in tion in 3:30 PM Automat source source ed test data data strip Leukocy NEGATIV NEGATIV No Normal No Jul 03 te E E informa informa 2014 esteras tion in tion in 3:30 PM e source source [Presen data data ce] in Urine by Automat ed test strip Nitrite NEGATIV NEGATIV No Normal No Jul 03 E E informa informa 2014 [Presen tion in tion in 3:30 PM ce] in source source Urine data data by Automat ed test strip Protein NEGATIV NEGATIV No Normal No Jul 03 E E informa informa 2014 [Presen tion in tion in 3:30 PM ce] in source source Urine data data by Automat ed test strip Glucose NEGATIV NEGATIV No Normal No Jul 03 E E informa informa 2014 [Presen tion in tion in 3:30 PM ce] in source source Urine data data by Automat ed test strip Ketones NEGATIV NEGATIV No Normal No Jul 03 E E informa informa 2014 [Presen tion in tion in 3:30 PM ce] in source source Urine data data by Automat ed test strip Urobili NEGATIV 0 - 1 mg/dL Normal No Jul 03 nogen E informa 2014 [Mass/v tion in 3:30 PM olume] source in data Urine by Automat ed test strip Bilirub NEGATIV NEGATIV No Normal No Jun 16 in E E informa informa 2014 [Presen tion in tion in 3:30 PM ce] in source source Urine data data by Automat ed test strip Erythro NEGATIV NEGATIV No Normal No Jul 03 cytes E E informa informa 2014 [#/volu tion in tion in 3:30 PM me] in source source Urine data data by Automat ed test strip UA WBC 2-5 0 - 2 No Abnorma No Jul 03 informa l informa 2014 tion in tion in 3:30 PM source source data data Bacteri TRACE NONE No Abnorma No Jul 03 a SEEN informa l informa 2014 tion in tion in 3:30 PM source source data data AMORPHO 3+ NONE No Abnorma No Jul 03 US SEEN informa l informa 2014 SEDIMEN tion in tion in 3:30 PM T source source data data SUBOXONE, IN HOUSE Observa Value Referen Units Interpr Notes Date tion ce etation Range BUPRENO NEGATIV NEGATIV No Normal No Jun 15 RPHINE/ E E informa informa 2014 tion in tion in 12:17 SUBOXAN source source AM E data data DRUGS OF ABUSE SCREEN (7 TEST) Observa Value Referen Units Interpr Notes Date tion ce etation Range Cannabi NEGATIV NEGATIV No Normal No Jun 15 noids E E,NEG. informa informa 2014 [Presen tion in tion in 12:17 ce] in source source AM Urine data data by Screen method Ampheta NEGATIV NEGATIV No Normal No Jun 15 mines E E,NEG. informa informa 2014 [Presen tion in tion in 12:17 ce] in source source AM Urine data data by Screen method Phencyc NEGATIV NEGATIV No Normal No Jun 15 lidine E E,NEG. informa informa 2014 [Presen tion in tion in 12:17 ce] in source source AM Urine data data by Screen method Barbitu NEGATIV NEGATIV No Normal No Jun 15 rates E E,NEG. informa informa 2014 [Presen tion in tion in 12:17 ce] in source source AM Urine data data by Screen method Benzoyl NEGATIV NEGATIV No Normal No Jun 15 ecgonin E E,NEG. informa informa 2014 e tion in tion in 12:17 [Presen source source AM ce] in data data Urine by Screen method Benzodi NEGATIV NEGATIV No Normal No Mar 15 azepine E E,NEG. informa informa 2015 s tion in tion in 12:17 [Presen source source AM ce] in data data Urine by Screen method Opiates NEGATIV NEGATIV No Normal DRUG Jul 02 E E,NEG. informa SCREEN 2014 [Presen tion in CUTOFF 12:17 ce] in source LEVELS: AM Urine data PCP\.sk by 5\\.sk5 Screen \- method 25 ng/mlBE NZO \.sk5\- \.sk5\2 00 ng/mlCO C\.sk5\ \.sk5\- \.sk5\3 00 ng/mlAM P\.sk5\ \.sk5\- \.sk5\1 000 ng/mlTH C\.sk5\ \.sk5\- \.sk5\5 0 ng/mlOP I\.sk5\ \.sk5\- \.sk5\3 00 ng/mlBA RB - 200 ng/mlME TDON \.sk5\- \.sk5\3 00 ng/mlPR OPOXY - 300 ng/mlME THAQ - 300 ng/ml METHADONE,URINE Observa Value Referen Units Interpr Notes Date tion ce etation Range Methado NEGATIV NEGATIV No Normal No Jul 02 ne E E,NEG. informa informa 2014 [Presen tion in tion in 12:17 ce] in source source AM Urine data data by Screen method URINALYSIS W/MICRO Observa Value Referen Units Interpr Notes Date tion ce etation Range Color DARK YELLOW, No Abnorma No Jul 02 of YELLOW STRAW,C informa l informa 2014 Urine OLORLES tion in tion in 12:14 by Auto S,PALE source source AM YELLOW data data Clarity SL HAZY CLEAR No Abnorma No Jun 15 of informa l informa 2014 Urine tion in tion in 12:14 source source AM data data Specifi 1.020 1.016 - No Normal No Jun 15 c 1.022 informa informa 2014 gravity tion in tion in 12:14 of source source AM Urine data data by Automat ed test strip pH of 6.0 5.0 - No Normal No Jun 15 Urine 7.0 informa informa 2014 by tion in tion in 12:14 Automat source source AM ed test data data strip Leukocy NEGATIV NEGATIV No Normal No Jun 15 te E E informa informa 2014 esteras tion in tion in 12:14 e source source AM [Presen data data ce] in Urine by Automat ed test strip Nitrite NEGATIV NEGATIV No Normal No Jun 15 E E informa informa 2014 [Presen tion in tion in 12:14 ce] in source source AM Urine data data by Automat ed test strip Protein NEGATIV NEGATIV No Normal No Jun 15 E E informa informa 2014 [Presen tion in tion in 12:14 ce] in source source AM Urine data data by Automat ed test strip Glucose NEGATIV NEGATIV No Normal No Jun 15 E E informa informa 2014 [Presen tion in tion in 12:14 ce] in source source AM Urine data data by Automat ed test strip Ketones NEGATIV NEGATIV No Normal No Jun 15 E E informa informa 2014 [Presen tion in tion in 12:14 ce] in source source AM Urine data data by Automat ed test strip Urobili NEGATIV 0 - 1 mg/dL Normal No Jun 15 nogen E informa 2014 [Mass/v tion in 12:14 olume] source AM in data Urine by Automat ed test strip Bilirub NEGATIV NEGATIV No Normal No Jun 15 in E E informa informa 2014 [Presen tion in tion in 12:14 ce] in source source AM Urine data data by Automat ed test strip Erythro NEGATIV NEGATIV No Normal No Jun 15 cytes E E informa informa 2014 [#/volu tion in tion in 12:14 me] in source source AM Urine data data by Automat ed test strip UA WBC 0-2 0 - 2 No Normal No Jun 15 informa informa 2014 tion in tion in 12:14 source source AM data data UA RBC 0-2 0 - 2 No Normal No Jun 15 informa informa 2014 tion in tion in 12:14 source source AM data data Bacteri TRACE NONE No Abnorma No Jun 15 a SEEN informa l informa 2014 tion in tion in 12:14 source source AM data data Epithel 10-20 NONE No Abnorma No Jun 15 ial SQUAMOU SEEN informa l informa 2014 Cells S tion in tion in 12:14 EPITHEL source source AM IAL data data CELLS Mucus 1+ NONE No Abnorma No Mar 15 SEEN informa l informa 2014 tion in tion in 12:14 source source AM data data Casts NONE NONE No Normal No Mar 15 SEEN SEEN informa informa 2014 tion in tion in 12:14 source source AM data data Crystal 2-5 NONE No Abnorma No Mar 15 s CALCIUM SEEN informa l informa 2014 tion in tion in 12:14 OXALATE source source AM data data CRYSTAL S YEAST, NONE NONE No Normal No Mar 15 UA OBSERVE OBSERVE informa informa 2014 D D tion in tion in 12:14 source source AM data data AMORPHO NONE NONE No Normal No Mar 15 US SEEN SEEN informa informa 2014 SEDIMEN tion in tion in 12:14 T source source AM data data TRICHOM none No No No No Mar 15 ONAS seen informa informa informa informa 2014 tion in tion in tion in tion in 12:14 source source source source AM data data data data METHADONE,URINE Observa Value Referen Units Interpr Notes Date tion ce etation Range Methado NEGATIV NEGATIV No Normal No Mar 7 ne E E,NEG. informa informa 2014 [Presen tion in tion in 12:04 ce] in source source AM Urine data data by Screen method DRUGS OF ABUSE SCREEN (7 TEST) Observa Value Referen Units Interpr Notes Date tion ce etation Range [place]abi NEGATIV NEGATIV No Normal No Mar 7 noids E E,NEG. informa informa 2014 [Presen tion in tion in 12:04 ce] in source source AM Urine data data by Screen method Ampheta NEGATIV NEGATIV No Normal No Mar 7 mines E E,NEG. informa informa 2014 [Presen tion in tion in 12:04 ce] in source source AM Urine data data by Screen method Phencyc NEGATIV NEGATIV No Normal No Mar 7 lidine E E,NEG. informa informa 2014 [Presen tion in tion in 12:04 ce] in source source AM Urine data data by Screen method Barbitu NEGATIV NEGATIV No Normal No Mar 7 rates E E,NEG. informa informa 2014 [Presen tion in tion in 12:04 ce] in source source AM Urine data data by Screen method Benzoyl NEGATIV NEGATIV No Normal No Jun 7 ecgonin E E,NEG. informa informa 2014 e tion in tion in 12:04 [Presen source source AM ce] in data data Urine by Screen method Benzodi NEGATIV NEGATIV No Normal No Jun 7 azepine E E,NEG. informa informa 2014 s tion in tion in 12:04 [Presen source source AM ce] in data data Urine by Screen method Opiates NEGATIV NEGATIV No Normal DRUG Jun 7 E E,NEG. informa SCREEN 2014 [Presen tion in CUTOFF 12:04 ce] in source LEVELS: AM Urine data PCP\.sk by 5\\.sk5 Screen \- method 25 ng/mlBE NZO \.sk5\- \.sk5\2 00 ng/mlCO C\.sk5\ \.sk5\- \.sk5\3 00 ng/mlAM P\.sk5\ \.sk5\- \.sk5\1 000 ng/mlTH C\.sk5\ \.sk5\- \.sk5\5 0 ng/mlOP I\.sk5\ \.sk5\- \.sk5\3 00 ng/mlBA RB - 200 ng/mlME TDON \.sk5\- \.sk5\3 00 ng/mlPR OPOXY - 300 ng/mlME THAQ - 300 ng/ml SUBOXONE, IN HOUSE Observa Value Referen Units Interpr Notes Date tion ce etation Range BUPRENO NEGATIV NEGATIV No Normal No Jun 6 RPHINE/ E E informa informa 2014 tion in tion in 9:22 PM SUBOXAN source source E data data URINALYSIS W/MICRO Observa Value Referen Units Interpr Notes Date tion ce etation Range Color YELLOW YELLOW, No Normal No Jun 6 of STRAW,C informa informa 2014 Urine OLORLES tion in tion in 9:15 PM by Auto S,PALE source source YELLOW data data Clarity SL HAZY CLEAR No Abnorma No Jun 6 of informa l informa 2014 Urine tion in tion in 9:15 PM source source data data Specifi 1.020 1.016 - No Normal No Jun 6 c 1.022 informa informa 2014 gravity tion in tion in 9:15 PM of source source Urine data data by Automat ed test strip pH of 6.5 5.0 - No Normal No Jun 6 Urine 7.0 informa informa 2015 by tion in tion in 9:15 PM Automat source source ed test data data strip Leukocy NEGATIV NEGATIV No Normal No Jun 6 te E E informa informa 2015 esteras tion in tion in 9:15 PM e source source [Presen data data ce] in Urine by Automat ed test strip Nitrite NEGATIV NEGATIV No Normal No Jun 6 E E informa informa 2014 [Presen tion in tion in 9:15 PM ce] in source source Urine data data by Automat ed test strip Protein NEGATIV NEGATIV No Normal No Jun 6 E E informa informa 2014 [Presen tion in tion in 9:15 PM ce] in source source Urine data data by Automat ed test strip Glucose NEGATIV NEGATIV No Normal No Jun 6 E E informa informa 2014 [Presen tion in tion in 9:15 PM ce] in source source Urine data data by Automat ed test strip Ketones NEGATIV NEGATIV No Normal No Jun 6 E E informa informa 2014 [Presen tion in tion in 9:15 PM ce] in source source Urine data data by Automat ed test strip Urobili NEGATIV 0 - 1 mg/dL Normal No Jun 6 nogen E informa 2014 [Mass/v tion in 9:15 PM olume] source in data Urine by Automat ed test strip Bilirub NEGATIV NEGATIV No Normal No Jun 6 in E E informa informa 2014 [Presen tion in tion in 9:15 PM ce] in source source Urine data data by Automat ed test strip Erythro NEGATIV NEGATIV No Normal No Jun 6 cytes E E informa informa 2014 [#/volu tion in tion in 9:15 PM me] in source source Urine data data by Automat ed test strip UA WBC 0-2 0 - 2 No Normal No Jun 6 informa informa 2014 tion in tion in 9:15 PM source source data data UA RBC NONE 0 - 2 No Abnorma No Mar 6 SEEN informa l informa 2014 tion in tion in 9:15 PM source source data data Bacteri TRACE NONE No Abnorma No Mar 6 a SEEN informa l informa 2014 tion in tion in 9:15 PM source source data data Epithel 0-4 NONE No Abnorma No Mar 6 ial SQUAMOU SEEN informa l informa 2014 Cells S tion in tion in 9:15 PM EPITHEL source source IAL data data CELLS Mucus 2+ NONE No Abnorma No Mar 6 SEEN informa l informa 2014 tion in tion in 9:15 PM source source data data Casts NONE NONE No Normal No Mar 6 SEEN SEEN informa informa 2014 tion in tion in 9:15 PM source source data data Crystal NONE NONE No Normal No Mar 6 s SEEN SEEN informa informa 2014 tion in tion in 9:15 PM source source data data YEAST, NONE NONE No Normal No Mar 6 UA OBSERVE OBSERVE informa informa 2014 D D tion in tion in 9:15 PM source source data data AMORPHO NONE NONE No Normal No Mar 6 US SEEN SEEN informa informa 2014 SEDIMEN tion in tion in 9:15 PM T source source data data TRICHOM none No No No No Mar 6 ONAS seen informa informa informa informa 2014 tion in tion in tion in tion in 9:15 PM source source source source data data data data URINALYSIS W/MICRO Observa Value Referen Units Interpr Notes Date tion ce etation Range Color YELLOW YELLOW, No Normal No Mar 2 of STRAW,C informa informa 2014 Urine OLORLES tion in tion in 7:54 PM by Auto S,PALE source source YELLOW data data Clarity SL HAZY CLEAR No Abnorma No Mar 2 of informa l informa 2014 Urine tion in tion in 7:54 PM source source data data Specifi 1.020 1.016 - No Normal No Mar 2 c 1.022 informa informa 2015 gravity tion in tion in 2:28 PM of source source Urine data data by Automat ed test strip pH of 6.5 5.0 - No Normal No Mar 2 Urine 7.0 informa informa 2015 by tion in tion in 2:28 PM Automat source source ed test data data strip Leukocy NEGATIV NEGATIV No Normal No Jun 2 te E E informa informa 2014 esteras tion in tion in 2:28 PM e source source [Presen data data ce] in Urine by Automat ed test strip Nitrite NEGATIV NEGATIV No Normal No Jun 2 E E informa informa 2014 [Presen tion in tion in 2:28 PM ce] in source source Urine data data by Automat ed test strip Protein NEGATIV NEGATIV No Normal No Jun 2 E E informa informa 2014 [Presen tion in tion in 2:28 PM ce] in source source Urine data data by Automat ed test strip Glucose NEGATIV NEGATIV No Normal No Jun 2 E E informa informa 2014 [Presen tion in tion in 2:28 PM ce] in source source Urine data data by Automat ed test strip Ketones NEGATIV NEGATIV No Normal No Jun 2 E E informa informa 2014 [Presen tion in tion in 2:28 PM ce] in source source Urine data data by Automat ed test strip Urobili NEGATIV 0 - 1 mg/dL Normal No Jun 2 nogen E informa 2014 [Mass/v tion in 2:28 PM olume] source in data Urine by Automat ed test strip Bilirub NEGATIV NEGATIV No Normal No Jun 2 in E E informa informa 2014 [Presen tion in tion in 2:28 PM ce] in source source Urine data data by Automat ed test strip Erythro NEGATIV NEGATIV No Normal No Jun 2 cytes E E informa informa 2014 [#/volu tion in tion in 2:28 PM me] in source source Urine data data by Automat ed test strip UA WBC 2-5 0 - 2 No Abnorma No Jun 2 informa l informa 2014 tion in tion in 2:28 PM source source data data Bacteri 2+ NONE No Abnorma No Jun 2 a SEEN informa l informa 2014 tion in tion in 2:28 PM source source data data Epithel 10-20 NONE No Abnorma No Jun 2 ial SQUAMOU SEEN informa l informa 2014 Cells S tion in tion in 2:28 PM EPITHEL source source IAL data data CELLS URINALYSIS W/MICRO Observa Value Referen Units Interpr Notes Date tion ce etation Range Color YELLOW YELLOW, No Normal No Jun 16 of STRAW,C informa informa 2014 Urine OLORLES tion in tion in 2:24 AM by Auto S,PALE source source YELLOW data data Clarity HAZY CLEAR No Abnorma No Jun 16 of informa l informa 2014 Urine tion in tion in 2:24 AM source source data data Specifi 1.025 1.016 - No High No Jun 16 c 1.022 informa informa 2014 gravity tion in tion in 2:24 AM of source source Urine data data by Automat ed test strip pH of 6.0 5.0 - No Normal No Jun 16 Urine 7.0 informa informa 2015 by tion in tion in 2:24 AM Automat source source ed test data data strip Leukocy NEGATIV NEGATIV No Normal No Jun 16 te E E informa informa 2014 esteras tion in tion in 2:24 AM e source source [Presen data data ce] in Urine by Automat ed test strip Nitrite NEGATIV NEGATIV No Normal No Jun 16 E E informa informa 2014 [Presen tion in tion in 2:24 AM ce] in source source Urine data data by Automat ed test strip Protein NEGATIV NEGATIV No Normal No Jun 16 E E informa informa 2014 [Presen tion in tion in 2:24 AM ce] in source source Urine data data by Automat ed test strip Glucose NEGATIV NEGATIV No Normal No Jun 16 E E informa informa 2014 [Presen tion in tion in 2:24 AM ce] in source source Urine data data by Automat ed test strip Ketones NEGATIV NEGATIV No Normal No Jun 16 E E informa informa 2014 [Presen tion in tion in 2:24 AM ce] in source source Urine data data by Automat ed test strip Urobili NEGATIV 0 - 1 mg/dL Normal No Jun 16 nogen E informa 2014 [Mass/v tion in 2:24 AM olume] source in data Urine by Automat ed test strip Bilirub NEGATIV NEGATIV No Normal No May 27 in E E informa informa 2014 [Presen tion in tion in 2:24 AM ce] in source source Urine data data by Automat ed test strip Erythro NEGATIV NEGATIV No Normal No Jun 16 cytes E E informa informa 2014 [#/volu tion in tion in 2:24 AM me] in source source Urine data data by Automat ed test strip UA WBC 2-5 0 - 2 No Abnorma No Jun 16 informa l informa 2014 tion in tion in 2:24 AM source source data data UA RBC NONE 0 - 2 No Abnorma No Jun 16 SEEN informa l informa 2014 tion in tion in 2:24 AM source source data data Bacteri 2+ NONE No Abnorma No Jun 16 a SEEN informa l informa 2014 tion in tion in 2:24 AM source source data data Epithel 10-20 NONE No Abnorma No Jun 16 ial SQUAMOU SEEN informa l informa 2014 Cells S tion in tion in 2:24 AM EPITHEL source source IAL data data CELLS SUBOXONE, IN HOUSE Observa Value Referen Units Interpr Notes Date tion ce etation Range BUPRENO NEGATIV NEGATIV No Normal No Jun 16 RPHINE/ E E informa informa 2014 tion in tion in 2:23 AM SUBOXAN source source E data data DRUGS OF ABUSE SCREEN (7 TEST) Observa Value Referen Units Interpr Notes Date tion ce etation Range Cannabi NEGATIV NEGATIV No Normal No Jun 16 noids E E,NEG. informa informa 2014 [Presen tion in tion in 2:22 AM ce] in source source Urine data data by Screen method Ampheta NEGATIV NEGATIV No Normal No Jun 16 mines E E,NEG. informa informa 2014 [Presen tion in tion in 2:22 AM ce] in source source Urine data data by Screen method Phencyc NEGATIV NEGATIV No Normal No Jun 16 lidine E E,NEG. informa informa 2014 [Presen tion in tion in 2:22 AM ce] in source source Urine data data by Screen method Barbitu NEGATIV NEGATIV No Normal No Jun 16 rates E E,NEG. informa informa 2014 [Presen tion in tion in 2:22 AM ce] in source source Urine data data by Screen method Benzoyl NEGATIV NEGATIV No Normal No Jun 16 ecgonin E E,NEG. informa informa 2014 e tion in tion in 2:22 AM [Presen source source ce] in data data Urine by Screen method Benzodi NEGATIV NEGATIV No Normal No Jun 16 azepine E E,NEG. informa informa 2014 s tion in tion in 2:22 AM [Presen source source ce] in data data Urine by Screen method Opiates NEGATIV NEGATIV No Normal DRUG Jun 16 E E,NEG. informa SCREEN 2014 [Presen tion in CUTOFF 2:22 AM ce] in source LEVELS: Urine data PCP\.sk by 5\\.sk5 Screen \- method 25 ng/mlBE NZO \.sk5\- \.sk5\2 00 ng/mlCO C\.sk5\ \.sk5\- \.sk5\3 00 ng/mlAM P\.sk5\ \.sk5\- \.sk5\1 000 ng/mlTH C\.sk5\ \.sk5\- \.sk5\5 0 ng/mlOP I\.sk5\ \.sk5\- \.sk5\3 00 ng/mlBA RB - 200 ng/mlME TDON \.sk5\- \.sk5\3 00 ng/mlPR OPOXY - 300 ng/mlME THAQ - 300 ng/ml METHADONE,URINE Observa Value Referen Units Interpr Notes Date ti ce etation Range Methado NEGATIV NEGATIV No Normal No Jun 16 ne E E,NEG. informa informa 2014 [Presen tion in tion in 2:22 AM ce] in source source Urine data data by Screen method URINALYSIS W/MICRO Observa Value Referen Units Interpr Notes Date ti ce etation Range Color DARK YELLOW, No Abnorma No Jun 12 of YELLOW STRAW,C informa l informa 2014 Urine OLORLES tion in tion in 5:27 PM by Auto S,PALE source source YELLOW data data Clarity SL HAZY CLEAR No Abnorma No Jun 12 of informa l informa 2014 Urine tion in tion in 5:27 PM source source data data Specifi 1.015 1.016 - No Low No Jun 12 c 1.022 informa informa 2014 gravity tion in tion in 5:27 PM of source source Urine data data by Automat ed test strip pH of 6.5 5.0 - No Normal No Jun 12 Urine 7.0 informa informa 2015 by tion in tion in 5:27 PM Automat source source ed test data data strip Leukocy NEGATIV NEGATIV No Normal No Jun 12 te E E informa informa 2015 esteras tion in tion in 5:27 PM e source source [Presen data data ce] in Urine by Automat ed test strip Nitrite NEGATIV NEGATIV No Normal No Jun 12 E E informa informa 2014 [Presen tion in tion in 5:27 PM ce] in source source Urine data data by Automat ed test strip Protein NEGATIV NEGATIV No Normal No Jun 12 E E informa informa 2014 [Presen tion in tion in 5:27 PM ce] in source source Urine data data by Automat ed test strip Glucose NEGATIV NEGATIV No Normal No Jun 12 E E informa informa 2014 [Presen tion in tion in 5:27 PM ce] in source source Urine data data by Automat ed test strip Ketones NEGATIV NEGATIV No Normal No Jun 12 E E informa informa 2014 [Presen tion in tion in 5:27 PM ce] in source source Urine data data by Automat ed test strip Urobili NEGATIV 0 - 1 mg/dL Normal No Jun 12 nogen E informa 2014 [Mass/v tion in 5:27 PM olume] source in data Urine by Automat ed test strip Bilirub NEGATIV NEGATIV No Normal No Jun 12 in E E informa informa 2014 [Presen tion in tion in 5:27 PM ce] in source source Urine data data by Automat ed test strip Erythro NEGATIV NEGATIV No Normal No Jun 12 cytes E E informa informa 2014 [#/volu tion in tion in 5:27 PM me] in source source Urine data data by Automat ed test strip UA WBC 0-2 0 - 2 No Normal No Jun 12 informa informa 2014 tion in tion in 5:27 PM source source data data UA RBC NONE 0 - 2 No Abnorma No Feb 23 SEEN informa l informa 2014 tion in tion in 5:27 PM source source data data Bacteri 1+ NONE No Abnorma No Feb 23 a SEEN informa l informa 2014 tion in tion in 5:27 PM source source data data Epithel 5-10 NONE No Abnorma No Feb 23 ial SQUAMOU SEEN informa l informa 2014 Cells S tion in tion in 5:27 PM EPITHEL source source IAL data data CELLS Mucus NONE NONE No Normal No Feb 23 SEEN SEEN informa informa 2014 tion in tion in 5:27 PM source source data data Casts NONE NONE No Normal No Feb 23 SEEN SEEN informa informa 2014 tion in tion in 5:27 PM source source data data Crystal NONE NONE No Normal No Feb 23 s SEEN SEEN informa informa 2014 tion in tion in 5:27 PM source source data data YEAST, NONE NONE No Normal No Feb 23 UA OBSERVE OBSERVE informa informa 2014 D D tion in tion in 5:27 PM source source data data AMORPHO NONE NONE No Normal No Feb 23 US SEEN SEEN informa informa 2014 SEDIMEN tion in tion in 5:27 PM T source source data data TRICHOM none No No No No Feb 23 ONAS seen informa informa informa informa 2014 tion in tion in tion in tion in 5:27 PM source source source source data data data data DRUGS OF ABUSE SCREEN (7 TEST) Observa Value Referen Units Interpr Notes Date tion ce etation Range Cannabi NEGATIV NEGATIV No Normal No Feb 20 noids E E,NEG. informa informa 2014 [Presen tion in tion in 11:58 ce] in source source PM Urine data data by Screen method Ampheta NEGATIV NEGATIV No Normal No Feb 20 mines E E,NEG. informa informa 2014 [Presen tion in tion in 11:58 ce] in source source PM Urine data data by Screen method Phencyc NEGATIV NEGATIV No Normal No Feb 20 lidine E E,NEG. informa informa 2014 [Presen tion in tion in 11:58 ce] in source source PM Urine data data by Screen method Barbitu NEGATIV NEGATIV No Normal No Jun 09 rates E E,NEG. informa informa 2014 [Presen tion in tion in 11:58 ce] in source source PM Urine data data by Screen method Benzoyl NEGATIV NEGATIV No Normal No Jun 09 ecgonin E E,NEG. informa informa 2014 e tion in tion in 11:58 [Presen source source PM ce] in data data Urine by Screen method Benzodi NEGATIV NEGATIV No Normal No Jun 09 azepine E E,NEG. informa informa 2014 s tion in tion in 11:58 [Presen source source PM ce] in data data Urine by Screen method Opiates NEGATIV NEGATIV No Normal DRUG Jun 09 E E,NEG. informa SCREEN 2014 [Presen tion in CUTOFF 11:58 ce] in source LEVELS: PM Urine data PCP\.sk by 5\\.sk5 Screen \- method 25 ng/mlBE NZO \.sk5\- \.sk5\2 00 ng/mlCO C\.sk5\ \.sk5\- \.sk5\3 00 ng/mlAM P\.sk5\ \.sk5\- \.sk5\1 000 ng/mlTH C\.sk5\ \.sk5\- \.sk5\5 0 ng/mlOP I\.sk5\ \.sk5\- \.sk5\3 00 ng/mlBA RB - 200 ng/mlME TDON \.sk5\- \.sk5\3 00 ng/mlPR OPOXY - 300 ng/mlME THAQ - 300 ng/ml METHADONE,URINE Observa Value Referen Units Interpr Notes Date tion ce etation Range Methado NEGATIV NEGATIV No Normal No b ne E E,NEG. informa informa 2014 [Presen tion in tion in 11:58 ce] in source source PM Urine data data by Screen method URINALYSIS W/MICRO Observa Value Referen Units Interpr Notes Date tion ce etation Range Color DARK YELLOW, No Abnorma No Jun 09 of YELLOW STRAW,C informa l inform2014 Urine OLORLES tion in tion in 10:35 by Auto S,PALE source source PM YELLOW data data Clarity SL HAZY CLEAR No Abnorma No b 20 of informa l informa 2014 Urine tion in tion in 10:35 source source PM data data Specifi 1.015 1.016 - No Low No Feb 20 c 1.022 informa informa 2015 gravity tion in tion in 10:35 of source source PM Urine data data by Automat ed test strip pH of 7.0 5.0 - No Normal No b 20 Urine 7.0 informa informa 2015 by tion in tion in 10:35 Automat source source PM ed test data data strip Leukocy NEGATIV NEGATIV No Normal No b 20 te E E informa informa 2015 esteras tion in tion in 10:35 e source source PM [Presen data data ce] in Urine by Automat ed test strip Nitrite NEGATIV NEGATIV No Normal No b 20 E E informa informa 2014 [Presen tion in tion in 10:35 ce] in source source PM Urine data data by Automat ed test strip Protein NEGATIV NEGATIV No Normal No b 20 E E informa informa 2014 [Presen tion in tion in 10:35 ce] in source source PM Urine data data by Automat ed test strip Glucose NEGATIV NEGATIV No Normal No b 20 E E informa informa 2014 [Presen tion in tion in 10:35 ce] in source source PM Urine data data by Automat ed test strip Ketones NEGATIV NEGATIV No Normal No b 20 E E informa informa 2014 [Presen tion in tion in 10:35 ce] in source source PM Urine data data by Automat ed test strip Urobili NEGATIV 0 - 1 mg/dL Normal No Feb 20 nogen E informa 2014 [Mass/v tion in 10:35 olume] source PM in data Urine by Automat ed test strip Bilirub NEGATIV NEGATIV No Normal No b 20 in E E informa informa 2014 [Presen tion in tion in 10:35 ce] in source source PM Urine data data by Automat ed test strip Erythro NEGATIV NEGATIV No Normal No b 20 cytes E E informa informa 2014 [#/volu tion in tion in 10:35 me] in source source PM Urine data data by Automat ed test strip UA WBC 0-2 0 - 2 No Normal No Feb 20 informa informa 2014 tion in tion in 10:35 source source PM data data UA RBC NONE 0 - 2 No Abnorma No Feb 20 SEEN informa l informa 2014 tion in tion in 10:35 source source PM data data Bacteri TRACE NONE No Abnorma No Feb 20 a SEEN informa l informa 2014 tion in tion in 10:35 source source PM data data Epithel 0-4 NONE No Abnorma No Feb 20 ial SQUAMOU SEEN informa l informa 2014 Cells S tion in tion in 10:35 EPITHEL source source PM IAL data data CELLS Mucus NONE NONE No Normal No Feb 20 SEEN SEEN informa informa 2014 tion in tion in 10:35 source source PM data data Casts NONE NONE No Normal No Feb 20 SEEN SEEN informa informa 2014 ti in tion in 10:35 source source PM data data Crystal NONE NONE No Normal No Feb 20 s SEEN SEEN informa informa 2014 ti in ti in 10:35 source source PM data data YEAST, NONE NONE No Normal No Feb 20 UA OBSERVE OBSERVE informa informa 2014 D D tion in tion in 10:35 source source PM data data AMORPHO NONE NONE No Normal No Feb 20 US SEEN SEEN informa informa 2014 SEDIMEN ti in ti in 10:35 T source source PM data data TRICHOM none No No No No Feb 20 ONAS seen informa informa informa informa 2014 ti in tion in tion in tion in 10:35 source source source source PM data data data data SUBOXONE, IN HOUSE Observa Value Referen Units Interpr Notes Date tion ce etation Range BUPRENO NEGATIV NEGATIV No Normal No Feb 20 RPHINE/ E E informa informa 2014 in tion in 10:23 SUBOXAN source source PM E data data RPR,SERUM Observa Value Referen Units Interpr Notes Date tion ce etation Range RPR NON-OLVIN NON-OLVIN No Normal No Feb 20 [address]IVE informa informa 2014 in tion in 4:25 AM source source data data METHADONE,URINE Observa Value Referen Units Interpr Notes Date tion ce etation Range Methado NEGATIV NEGATIV No Normal No b 18 ne E E,NEG. informa informa 2014 [Presen tion in tion in 3:41 PM ce] in source source Urine data data by Screen method DRUGS OF ABUSE SCREEN (7 TEST) Observa Value Referen Units Interpr Notes Date tion ce etation Range Cannabi NEGATIV NEGATIV No Normal No May 18 noids E E,NEG. informa informa 2014 [Presen tion in tion in 3:41 PM ce] in source source Urine data data by Screen method Ampheta NEGATIV NEGATIV No Normal No May 18 mines E E,NEG. informa informa 2014 [Presen tion in tion in 3:41 PM ce] in source source Urine data data by Screen method Phencyc NEGATIV NEGATIV No Normal No Jun 07 lidine E E,NEG. informa informa 2014 [Presen tion in tion in 3:41 PM ce] in source source Urine data data by Screen method Barbitu NEGATIV NEGATIV No Normal No May 18 rates E E,NEG. informa informa 2014 [Presen tion in tion in 3:41 PM ce] in source source Urine data data by Screen method Benzoyl NEGATIV NEGATIV No Normal No May 18 ecgonin E E,NEG. informa informa 2014 e tion in tion in 3:41 PM [Presen source source ce] in data data Urine by Screen method Benzodi NEGATIV NEGATIV No Normal No Jun 07 azepine E E,NEG. informa informa 2014 s tion in tion in 3:41 PM [Presen source source ce] in data data Urine by Screen method Opiates NEGATIV NEGATIV No Normal DRUG b 18 E E,NEG. informa SCREEN 2014 [Presen tion in CUTOFF 3:41 PM ce] in source LEVELS: Urine data PCP\.sk by 5\\.sk5 Screen \- method 25 ng/mlBE NZO \.sk5\- \.sk5\2 00 ng/mlCO C\.sk5\ \.sk5\- \.sk5\3 00 ng/mlAM P\.sk5\ \.sk5\- \.sk5\1 000 ng/mlTH C\.sk5\ \.sk5\- \.sk5\5 0 ng/mlOP I\.sk5\ \.sk5\- \.sk5\3 00 ng/mlBA RB - 200 ng/mlME TDON \.sk5\- \.sk5\3 00 ng/mlPR OPOXY - 300 ng/mlME THAQ - 300 ng/ml URINALYSIS W/MICRO Observa Value Referen Units Interpr Notes Date tion ce etation Range Color YELLOW YELLOW, No Normal No Feb 18 of STRAW,C informa informa 2015 Urine OLORLES tion in tion in 3:33 PM by Auto S,PALE source source YELLOW data data Clarity HAZY CLEAR No Abnorma No Feb 18 of informa l informa 2014 Urine tion in tion in 3:33 PM source source data data Specifi 1.015 1.016 - No Low No Feb 18 c 1.022 informa informa 2014 gravity tion in tion in 3:33 PM of source source Urine data data by Automat ed test strip pH of 8.0 5.0 - No High No Feb 18 Urine 7.0 informa informa 2015 by tion in tion in 3:33 PM Automat source source ed test data data strip Leukocy NEGATIV NEGATIV No Normal No Feb 18 te E E informa informa 2015 esteras tion in tion in 3:33 PM e source source [Presen data data ce] in Urine by Automat ed test strip Nitrite NEGATIV NEGATIV No Normal No Feb 18 E E informa informa 2014 [Presen tion in tion in 3:33 PM ce] in source source Urine data data by Automat ed test strip Protein NEGATIV NEGATIV No Normal No Feb 18 E E informa informa 2014 [Presen tion in tion in 3:33 PM ce] in source source Urine data data by Automat ed test strip Glucose NEGATIV NEGATIV No Normal No Feb 18 E E informa informa 2014 [Presen tion in tion in 3:33 PM ce] in source source Urine data data by Automat ed test strip Ketones NEGATIV NEGATIV No Normal No Feb 18 E E informa informa 2014 [Presen tion in tion in 3:33 PM ce] in source source Urine data data by Automat ed test strip Urobili NEGATIV 0 - 1 mg/dL Normal No b 18 nogen E informa 2014 [Mass/v tion in 3:33 PM olume] source in data Urine by Automat ed test strip Bilirub NEGATIV NEGATIV No Normal No b 18 in E E informa informa 2014 [Presen tion in tion in 3:33 PM ce] in source source Urine data data by Automat ed test strip Erythro NEGATIV NEGATIV No Normal No b 18 cytes E E informa informa 2014 [#/volu tion in tion in 3:33 PM me] in source source Urine data data by Automat ed test strip UA WBC 0-2 0 - 2 No Normal No b 18 informa informa 2015 tion in tion in 3:33 PM source source data data Bacteri 2+ NONE No Abnorma No b 18 a SEEN informa l informa 2014 tion in tion in 3:33 PM source source data data Epithel 10-20 NONE No Abnorma No b 18 ial SQUAMOU SEEN informa l informa 2014 Cells S tion in tion in 3:33 PM EPITHEL source source IAL data data CELLS AMORPHO 1+ NONE No Abnorma No b 18 US SEEN informa l informa 2014 SEDIMEN tion in tion in 3:33 PM T source source data data SUBOXONE, IN HOUSE Observa Value Referen Units Interpr Notes Date tion ce etation Range BUPRENO NEGATIV NEGATIV No Normal No b 18 RPHINE/ E E informa informa 2014 tion in tion in 3:24 PM SUBOXAN source source E data data HEMOGLOBIN Observa Value Referen Units Interpr Notes Date tion ce etation Range Hemoglo 13.1 12.0 - gm/dL Normal No b 18 bin 16.0 informa 2014 [Mass/v tion in 3:18 PM olume] source in data Blood HEMATOCRIT Observa Value Referen Units Interpr Notes Date tion ce etation Range Hematoc 38.3 37.0 - % Normal No b 18 rit 47.0 informa 2014 [Volume tion in 3:18 PM source Fractio data n] of Blood by Automat ed count URINALYSIS W/C+S IF INDICATED Observa Value Referen Units Interpr Notes Date tion ce etation Range Color YELLOW YELLOW, No Normal No May 12 of STRAW,C informa informa 2015 Urine OLORLES tion in tion in 12:23 by Auto S,PALE source source AM YELLOW data data Clarity CLEAR CLEAR No Normal No May 12 of informa informa 2015 Urine tion in tion in 12:23 source source AM data data Specifi 1.020 1.016 - No Normal No May 12 c 1.022 informa informa 2015 gravity tion in tion in 12:23 of source source AM Urine data data by Automat ed test strip pH of 6.5 5.0 - No Normal No Jun 01 Urine 7.0 informa informa 2015 by tion in tion in 12:23 Automat source source AM ed test data data strip Leukocy NEGATIV NEGATIV No Normal No Jun 01 te E E informa informa 2015 esteras tion in tion in 12:23 e source source AM [Presen data data ce] in Urine by Automat ed test strip Nitrite NEGATIV NEGATIV No Normal No May 12 E E informa informa 2014 [Presen tion in tion in 12:23 ce] in source source AM Urine data data by Automat ed test strip Protein NEGATIV NEGATIV No Normal No May 12 E E informa informa 2014 [Presen tion in tion in 12:23 ce] in source source AM Urine data data by Automat ed test strip Glucose NEGATIV NEGATIV No Normal No May 12 E E informa informa 2014 [Presen tion in tion in 12:23 ce] in source source AM Urine data data by Automat ed test strip Ketones NEGATIV NEGATIV No Normal No May 12 E E informa informa 2014 [Presen tion in tion in 12:23 ce] in source source AM Urine data data by Automat ed test strip Urobili NEGATIV 0 - 1 mg/dL Normal No May 12 nogen E informa 2015 [Mass/v tion in 12:23 olume] source AM in data Urine by Automat ed test strip Bilirub NEGATIV NEGATIV No Normal No Feb 12 in E E informa informa 2014 [Presen tion in tion in 12:23 ce] in source source AM Urine data data by Automat ed test strip Erythro NEGATIV NEGATIV No Normal No Feb 12 cytes E E informa informa 2014 [#/volu tion in tion in 12:23 me] in source source AM Urine data data by Automat ed test strip UA WBC NONE 0 - 2 No Abnorma No Feb 12 SEEN informa l informa 2014 tion in tion in 12:23 source source AM data data UA RBC NONE 0 - 2 No Abnorma No Feb 12 SEEN informa l informa 2014 tion in tion in 12:23 source source AM data data Bacteri NONE NONE No Normal No Feb 12 a SEEN SEEN informa informa 2014 tion in tion in 12:23 source source AM data data Epithel 0-4 NONE No Abnorma No Feb 12 ial SQUAMOU SEEN informa l informa 2014 Cells S tion in tion in 12:23 EPITHEL source source AM IAL data data CELLS Mucus NONE NONE No Normal No Feb 12 SEEN SEEN informa informa 2014 tion in tion in 12:23 source source AM data data Casts NONE NONE No Normal No Feb 12 SEEN SEEN informa informa 2014 tion in tion in 12:23 source source AM data data Crystal NONE NONE No Normal No Feb 12 s SEEN SEEN informa informa 2014 tion in tion in 12:23 source source AM data data YEAST, NONE NONE No Normal No Feb 12 UA OBSERVE OBSERVE informa informa 2014 D D tion in tion in 12:23 source source AM data data AMORPHO NONE NONE No Normal No Feb 12 US SEEN SEEN informa informa 2014 SEDIMEN tion in tion in 12:23 T source source AM data data TRICHOM NONE No No No No Feb 12 ONAS SEEN informa informa informa informa 2014 tion in tion in tion in tion in 12:23 source source source source AM data data data data HCG SCREEN,URINE Observa Value Referen Units Interpr Notes Date tion ce etation Range Qualita POSITIV NEGATIV No Abnorma No Feb 12 tive E E informa l informa 2014 HCG tion in tion in 12:15 source source AM data data URINALYSIS W/MICRO Observa Value Referen Units Interpr Notes Date tion ce etation Range Color DARK YELLOW, No Abnorma No Feb 2 of YELLOW STRAW,C informa l informa 2014 Urine OLORLES tion in tion in 3:42 PM by Auto S,PALE source source YELLOW data data Clarity HAZY CLEAR No Abnorma No Feb 2 of informa l informa 2014 Urine tion in tion in 3:42 PM source source data data Specifi 1.010 1.016 - No Low No Feb 2 c 1.022 informa informa 2014 gravity tion in tion in 3:42 PM of source source Urine data data by Automat ed test strip pH of 8.0 5.0 - No High No Feb 2 Urine 7.0 informa informa 2015 by tion in tion in 3:42 PM Automat source source ed test data data strip Leukocy NEGATIV NEGATIV No Normal No Feb 2 te E E informa informa 2014 esteras tion in tion in 3:42 PM e source source [Presen data data ce] in Urine by Automat ed test strip Nitrite NEGATIV NEGATIV No Normal No Feb 2 E E informa informa 2014 [Presen tion in tion in 3:42 PM ce] in source source Urine data data by Automat ed test strip Protein NEGATIV NEGATIV No Normal No Feb 2 E E informa informa 2014 [Presen tion in tion in 3:42 PM ce] in source source Urine data data by Automat ed test strip Glucose NEGATIV NEGATIV No Normal No Feb 2 E E informa informa 2014 [Presen tion in tion in 3:42 PM ce] in source source Urine data data by Automat ed test strip Ketones NEGATIV NEGATIV No Normal No Feb 2 E E informa informa 2014 [Presen tion in tion in 3:42 PM ce] in source source Urine data data by Automat ed test strip Urobili NEGATIV 0 - 1 mg/dL Normal No Feb 2 nogen E informa 2014 [Mass/v tion in 3:42 PM olume] source in data Urine by Automat ed test strip Bilirub NEGATIV NEGATIV No Normal No Feb 2 in E E informa informa 2014 [Presen tion in tion in 3:42 PM ce] in source source Urine data data by Automat ed test strip Erythro NEGATIV NEGATIV No Normal No Feb 2 cytes E E informa informa 2014 [#/volu tion in tion in 3:42 PM me] in source source Urine data data by Automat ed test strip UA WBC NONE 0 - 2 No Abnorma No Feb 2 SEEN informa l informa 2014 tion in tion in 3:42 PM source source data data UA RBC 0-2 0 - 2 No Normal No Feb 2 informa informa 2014 tion in tion in 3:42 PM source source data data Bacteri NONE NONE No Normal No Feb 2 a SEEN SEEN informa informa 2014 tion in tion in 3:42 PM source source data data Epithel 50-100 NONE No Abnorma No Feb 2 ial SEEN informa l informa 2014 Cells tion in tion in 3:42 PM source source data data AMORPHO 3+ NONE No Abnorma No Feb 2 US SEEN informa l informa 2014 SEDIMEN tion in tion in 3:42 PM T source source data data URINALYSIS W/MICRO Observa Value Referen Units Interpr Notes Date tion ce etation Range Color YELLOW YELLOW, No Normal No May 08 of STRAW,C informa informa 2015 Urine OLORLES tion in tion in 9:11 PM by Auto S,PALE source source YELLOW data data Clarity SL HAZY CLEAR No Abnorma No May 08 of informa l informa 2014 Urine tion in tion in 9:11 PM source source data data Specifi 1.005 1.016 - No Low No May 08 c 1.022 informa informa 2015 gravity tion in tion in 9:11 PM of source source Urine data data by Automat ed test strip pH of 8.0 5.0 - No High No May 08 Urine 7.0 informa informa 2015 by tion in tion in 9:11 PM Automat source source ed test data data strip Leukocy NEGATIV NEGATIV No Normal No May 08 te E E informa informa 2015 esteras tion in tion in 9:11 PM e source source [Presen data data ce] in Urine by Automat ed test strip Nitrite NEGATIV NEGATIV No Normal No May 08 E E informa informa 2014 [Presen tion in tion in 9:11 PM ce] in source source Urine data data by Automat ed test strip Protein TRACE NEGATIV No Abnorma No May 08 E informa l informa 2014 [Presen tion in tion in 9:11 PM ce] in source source Urine data data by Automat ed test strip Glucose NEGATIV NEGATIV No Normal No May 08 E E informa informa 2014 [Presen tion in tion in 9:11 PM ce] in source source Urine data data by Automat ed test strip Ketones NEGATIV NEGATIV No Normal No May 08 E E informa informa 2014 [Presen tion in tion in 9:11 PM ce] in source source Urine data data by Automat ed test strip Urobili 0 0 - 1 mg/dL Normal No May 08 nogen informa 2014 [Mass/v tion in 9:11 PM olume] source in data Urine by Automat ed test strip Bilirub NEGATIV NEGATIV No Normal No May 08 in E E informa informa 2014 [Presen tion in tion in 9:11 PM ce] in source source Urine data data by Automat ed test strip Erythro NEGATIV NEGATIV No Normal No May 08 cytes E E informa informa 2014 [#/volu tion in tion in 9:11 PM me] in source source Urine data data by Automat ed test strip UA RBC 0-2 0 - 2 No Normal No May 08 informa informa 2015 tion in tion in 9:11 PM source source data data Epithel 50-100 NONE No Abnorma No May 08 ial SEEN informa l informa 2014 Cells tion in tion in 9:11 PM source source data data AMORPHO 2+ NONE No Abnorma No May 08 US SEEN informa l informa 2014 SEDIMEN tion in tion in 9:11 PM T source source data data GLUCOSE 50 GM,NO FBS Observa Value Referen Units Interpr Notes Date tion ce etation Range 50 Gram Glucose Test Glucose 96 70 - mg/dL Normal No Apr 17 , 1 Hr 110 informa 2014 tion in 4:05 PM source data URINALYSIS W/MICRO Observa Value Referen Units Interpr Notes Date tion ce etation Range Color YELLOW YELLOW, No Normal No Apr 17 of STRAW,C informa informa 2013 Urine OLORLES tion in tion in 2:50 PM by Auto S,PALE source source YELLOW data data Clarity HAZY CLEAR No Abnorma No Apr 17 of informa l informa 2013 Urine tion in tion in 2:50 PM source source data data Specifi 1.015 1.016 - No Low No Apr 17 c 1.022 informa informa 2013 gravity tion in tion in 2:50 PM of source source Urine data data by Automat ed test strip pH of 7.0 5.0 - No Normal No Apr 17 Urine 7.0 informa informa 2013 by tion in tion in 2:50 PM Automat source source ed test data data strip Leukocy NEGATIV NEGATIV No Normal No Apr 17 te E E informa informa 2013 esteras tion in tion in 2:50 PM e source source [Presen data data ce] in Urine by Automat ed test strip Nitrite POSITIV NEGATIV No Abnorma No Apr 17 E E informa l informa 2013 [Presen tion in tion in 2:50 PM ce] in source source Urine data data by Automat ed test strip Protein NEGATIV NEGATIV No Normal No Apr 17 E E informa informa 2013 [Presen tion in tion in 2:50 PM ce] in source source Urine data data by Automat ed test strip Glucose NEGATIV NEGATIV No Normal No Apr 17 E E informa informa 2013 [Presen tion in tion in 2:50 PM ce] in source source Urine data data by Automat ed test strip Ketones NEGATIV NEGATIV No Normal No Apr 17 E E informa informa 2013 [Presen tion in tion in 2:50 PM ce] in source source Urine data data by Automat ed test strip Urobili NEGATIV 0 - 1 mg/dL Normal No Apr 17 nogen E informa 2013 [Mass/v tion in 2:50 PM olume] source in data Urine by Automat ed test strip Bilirub NEGATIV NEGATIV No Normal No Apr 17 in E E informa informa 2013 [Presen tion in tion in 2:50 PM ce] in source source Urine data data by Automat ed test strip Erythro NEGATIV NEGATIV No Normal No Apr 17 cytes E E informa informa 2013 [#/volu tion in tion in 2:50 PM me] in source source Urine data data by Automat ed test strip AMORPHO 4+ NONE No Abnorma 4+ Apr 17 US SEEN informa l AMORPHO 2013 SEDIMEN tion in US 2:50 PM T source SEDIMEN data T; ALL ALMAGUER OBSCURE D URINALYSIS W/MICRO Observa Value Referen Units Interpr Notes Date tion ce etation Range Color YELLOW YELLOW, No Normal No Apr 03 STRAW,C informa informa 2013 OLORLES tion in tion in 3:05 PM S,PALE source source YELLOW data data Appeara HAZY CLEAR No Abnorma No Apr 03 nce informa l informa 2013 tion in tion in 3:05 PM source source data data Specifi 1.015 1.016 - No Low No Apr 03 c 1.022 informa informa 2013 [place] tion in tion in 3:05 PM source source data data PH 7.0 5.0 - No Normal No Mar 15 7.0 informa informa 2013 tion in tion in 3:05 PM source source data data Leukocy NEGATIV NEGATIV No Normal No Apr 03 te E E informa informa 2013 tion in tion in 3:05 PM source source data data Nitrite NEGATIV NEGATIV No Normal No Apr 03 E E informa informa 2013 tion in tion in 3:05 PM source source data data UA NEGATIV NEGATIV No Normal No Apr 03 Protein E E informa informa 2013 tion in tion in 3:05 PM source source data data Glucose NEGATIV NEGATIV No Normal No Apr 03 E E informa informa 2013 tion in tion in 3:05 PM source source data data Ketones NEGATIV NEGATIV No Normal No Apr 03 E E informa informa 2013 tion in tion in 3:05 PM source source data data Urobili NEGATIV 0 - 1 mg/dL Normal No Mar 15 nogen E informa 2013 tion in 3:05 PM source data Bilirub NEGATIV NEGATIV No Normal No Mar 15 in E E informa informa 2013 tion in tion in 3:05 PM source source data data Blood NEGATIV NEGATIV No Normal No Apr 03 E E informa informa 2013 tion in tion in 3:05 PM source source data data UA WBC 2-5 0 - 2 No Abnorma No Apr 03 informa l informa 2013 tion in tion in 3:05 PM source source data data UA RBC NONE 0 - 2 No Abnorma No Apr 03 SEEN informa l informa 2013 tion in tion in 3:05 PM source source data data Bacteri 2+ NONE No Abnorma Apr 03 a SEEN informa l informa 2013 tion in tion in 3:05 PM source source data data Epithel 5-10 NONE No Abnorma No Apr 03 ial SQUAMOU SEEN informa l inform2013 Cells S tion in tion in 3:05 PM EPITHEL source source IAL data data CELLS Mucus TRACE NONE No Abnorma No Apr 03 SEEN informa l informa 2013 tion in tion in 3:05 PM source source data data CBC W/DIFF Observa Value Referen Units Interpr Notes Date tion ce etation Range SCANNED DIFF/AP Leukocy 14.0 3.5 - X_10\S\ High No Apr 01 cony 9.6 3 2013 [#/volu tion in 3:34 PM me] source correct data ed for nucleat ed erythro cytes in Blood by Automat ed count Erythro 4.41 4.20 - X_10\S\ Normal No Apr 01 cytes 5.40 6 2013 [#/volu tion in 3:34 PM me] in source Blood data by Automat ed count Hemoglo 13.0 12.0 - gm/dL Normal No Apr 01 bin 16.0 2013 [Mass/v tion in 3:34 PM olume] source in data Blood Hematoc 40.5 37.0 - % Normal No Apr 01 rit 47.0 2013 [Volume tion in 3:34 PM source Fractio data n] of Blood by Automat ed count Platele 262 130 - X_10\S\ Normal No Apr 01 ts 400 3 2013 [#/volu tion in 3:34 PM me] in source Blood data by Automat ed count Erythro 29.4 27.0 - pg Normal No Apr 01 cyte 32.0 2013 mean tion in 3:34 PM corpusc source ular data hemoglo bin [Entiti c mass] by Automat ed count Erythro 32.0 32.0 - gm/dL Normal No Apr 01 cyte 37.0 informa 2013 mean tion in 3:34 PM corpusc source ular data hemoglo bin concent ration [Mass/v olume] by Automat ed count Erythro 91.7 81.0 - fl Normal No Apr 01 cyte 99.0 informa 2013 mean tion in 3:34 PM corpusc source ular data volume [Entiti c volume] by Automat ed count Erythro 14.0 12.0 - % Normal No Apr 01 cyte 15.0 informa 2013 distrib tion in 3:34 PM ution source width data [Ratio] by Automat ed count Platele 9.2 6.2 - fl Normal No Apr 01 t mean 10.6 informa 2013 volume tion in 3:34 PM [Entiti source c data volume] in Blood by Automat ed count Neutrop 93.3 42.0 - % High No Apr 01 hils/10 75.0 informa 2013 0 tion in 3:34 PM leukocy source cony in data Blood by Automat ed count Lymphoc 3.1 20.0 - % Low No Apr 01 ytes/10 51.0 informa 2013 0 tion in 3:34 PM leukocy source cony in data Blood by Automat ed count Monocyt 3.5 0.0 - % Normal No Apr 01 es/100 13.0 informa 2013 leukocy tion in 3:34 PM cony in source Blood data by Automat ed count Eosinop 0.1 0.0 - % Normal No Apr 01 hils/10 6.0 informa 2013 0 tion in 3:34 PM leukocy source cony in data Blood by Automat ed count Basophi 0.0 0.0 - % Normal No Apr 01 ls/100 2.0 informa 2013 leukocy tion in 3:34 PM cony in source Blood data by Automat ed count Neutrop 13.0 1.5 - X_10\S\ High No Apr 01 hils 7.1 3 inform2013 [#/volu tion in 3:34 PM me] in source Blood data by Automat ed count Monocyt 0.5 0.2 - X_10\S\ Normal No Apr 01 es 1.2 3 inform2013 [#/volu tion in 3:34 PM me] in source Blood data by Automat ed count Eosinop 0.0 0.0 - X_10\S\ Normal No Apr 01 hils 0.8 3 2013 [#/volu tion in 3:34 PM me] in source Blood data by Automat ed count Basophi 0.0 0.0 - X_10\S\ Normal No Apr 01 ls 0.1 3 2013 [#/volu tion in 3:34 PM me] in source Blood data by Automat ed count Lymphoc 0.4 0.7 - X_10\S\ Low No Apr 01 ytes 4.3 3 2013 [#/volu tion in 3:34 PM me] in source Blood data by Automat ed count LIPASE Observa Value Referen Units Interpr Notes Date tion ce etation Range Lipase 116 73 - U/L Normal No Apr 01 393 2013 tion in 2:59 PM source data AMYLASE,SERUM Observa Value Referen Units Interpr Notes Date tion ce etation Range Amylase 46 25 - U/L Normal No Apr 01 115 2013 tion in 2:59 PM source data COMPREHENSIVE METABOLIC PANEL Observa Value Referen Units Interpr Notes Date tion ce etation Range Glucose 104 70 - 99 mg/dL High No Apr 012013 tion in 2:59 PM source data BUN 11 7 - 18 mg/dL Normal No Apr 012013 tion in 2:59 PM source data Creatin 0.7 0.6 - mg/dL Normal No Apr 01 ine 1.3 2013 tion in 2:59 PM source data Sodium 137 136 - mEq/L Normal No Apr 01 145 2013 tion in 2:59 PM source data Potassi 4.3 3.5 - mEq/L Normal No Apr 01 um 5.1 2013 tion in 2:59 PM source data Chlorid 102 98 - mEq/L Normal No Apr 01 e 107 2013 tion in 2:59 PM source data CO2 28 22 - 29 mmol/L Normal No Apr 012013 tion in 2:59 PM source data Calcium 8.7 8.5 - mg/dL Normal No Apr 01 10.1 2013 tion in 2:59 PM source data Total 6.7 6.4 - gm/dL Normal No Apr 01 Protein 8.2 2013 tion in 2:59 PM source data Albumin 3.1 3.4 - gm/dL Low No Apr 01 5.0 2013 tion in 2:59 PM source data Alk 50 50 - U/L Normal No Apr 01 Phos 136 2013 tion in 2:59 PM source data ALT 30 3 - 50 U/L Normal No Apr 012013 tion in 2:59 PM source data AST 14 15 - 37 U/L Low No Apr 012013 tion in 2:59 PM source data Bilirub 0.27 0.0 - mg/dL Normal No Apr 01 in, 1.0 2013 Total tion in 2:59 PM source data BUN/Cre 16 No No No No Apr 01 at informa informa informa informa 2013 Ratio tion in tion in tion in tion in 2:59 PM source source source source data data data data A/G 0.9 No No No No Apr 01 Ratio informa informa informa informa 2013 tion in tion in tion in tion in 2:59 PM source source source source data data data data CULTURE, URINE Observa Value Referen Units Interpr Notes Date ti ce etation Range Clinica Specime No No No No Apr 03 l n: informa informa informa informa 2013 Report URINECo tion in tion in tion in tion in 5:09 PM llected source source source source : data data data data 014 13:43St atus: Final Last Updated : 17:09CU L RES (Final) <10,000 Cfu/MlG enedina Positiv e Cocci URINALYSIS W/C+S IF INDICATED Observa Value Referen Units Interpr Notes Date tion ce etation Range Color YELLOW YELLOW, No Normal No Apr 01 STRAW,C informa informa 2013 OLORLES tion in tion in 3:04 PM S,PALE source source YELLOW data data Appeara SL HAZY CLEAR No Abnorma No Apr 01 nce informa l inform2013 tion in tion in 3:04 PM source source data data Specifi 1.020 1.016 - No Normal No Apr 01 c 1.022 informa informa 2013 [place] tion in tion in 3:04 PM source source data data PH 5.0 5.0 - No Normal No Mar 13 7.0 informa informa 2013 tion in tion in 3:04 PM source source data data Leukocy NEGATIV NEGATIV No Normal No Mar 13 te E E informa informa 2013 tion in tion in 3:04 PM source source data data Nitrite NEGATIV NEGATIV No Normal No Mar 13 E E informa informa 2013 tion in tion in 3:04 PM source source data data UA NEGATIV NEGATIV No Normal No Apr 01 Protein E E informa informa 2013 tion in tion in 3:04 PM source source data data Glucose NEGATIV NEGATIV No Normal No Apr 01 E E informa informa 2013 tion in tion in 3:04 PM source source data data Ketones NEGATIV NEGATIV No Normal No Apr 01 E E informa informa 2013 tion in tion in 3:04 PM source source data data Urobili NEGATIV 0 - 1 mg/dL Normal No Apr 01 nogen E informa 2013 tion in 3:04 PM source data Bilirub NEGATIV NEGATIV No Normal No Apr 01 in E E informa informa 2013 tion in tion in 3:04 PM source source data data Blood NEGATIV NEGATIV No Normal No Apr 01 E E informa informa 2013 tion in tion in 3:04 PM source source data data UA WBC 0-2 0 - 2 No Normal No Mar 13 informa informa 2013 tion in tion in 3:04 PM source source data data UA RBC 0-2 0 - 2 No Normal No Mar 13 informa informa 2013 tion in tion in 3:04 PM source source data data Bacteri NONE NONE No Normal No Dec 13 a SEEN SEEN informa informa 2013 tion in tion in 3:04 PM source source data data Epithel 10-20 NONE No Abnorma No Mar 13 ial SQUAMOU SEEN informa l informa 2013 Cells S tion in tion in 3:04 PM EPITHEL source source IAL data data CELLS Mucus NONE NONE No Normal No Dec 13 SEEN SEEN informa informa 2013 tion in tion in 3:04 PM source source data data Casts NONE NONE No Normal No Dec 13 SEEN SEEN informa informa 2013 tion in tion in 3:04 PM source source data data Crystal NONE NONE No Normal No Apr 01 s SEEN SEEN informa informa 2013 tion in tion in 3:04 PM source source data data YEAST, NONE NONE No Normal No Apr 01 UA OBSERVE OBSERVE informa informa 2013 D D tion in tion in 3:04 PM source source data data AMORPHO NONE NONE No Normal No Apr 01 US SEEN SEEN informa informa 2013 SEDIMEN tion in tion in 3:04 PM T source source data data TRICHOM NONE No No No No Apr 01 ONAS SEEN informa informa informa informa 2013 tion in tion in tion in tion in 3:04 PM source source source source data data data data HCG SCREEN,URINE Observa Value Referen Units Interpr Notes Date tion ce etation Range Qualita POSITIV NEGATIV No Abnorma No Apr 01 tive E E informa l 2013 HCG tion in in 2:25 PM source source data data ALPHA FETOPROTIEN 4 PROFILE Observa Value Referen Units Interpr Notes Date ti ce etation Range Alpha-F SEE No No No Test Feb 21 eto COMMENT informa informa informa 2013 4Marker S tion in tion in in 3:18 PM source source source 014 data data data 02:18 PM Result Flag Unit RefValu e------ ------- ------- ------- ------- ------- ------- ------- ------- ------- -QUAD SCRN (2nd Tri) MATERNA L, SCalcul ated age at [place] 18 yearsMa ternal Weight 167 lbsInsu jone depende nt diabete s NoneBla ck race non-Marino ckEDD by U/S scan 5GA on collect ion by U/S scan 16,5 wk,dGA used in risk estimat e Scan estimat eAFP 0.94 MoM ( 33.4 ng/mL )uE3 1.44 MoM ( 1.45 ng/mL )hCG, TOTAL 0.49 MoM ( 13.5 IU/mL )INHIBI N 0.86 MoM ( 141 pg/mL )Down syndrom e screen risk estimat e < 1/50,00 0Down syndrom e materna l age risk 1/1,200 Trisomy 18 screen risk estimat e < 1/100IN TERPRET [facility] reen negativ e for neural tube defects and Down syndrom e.The risk for trisomy 18 is less than 1%.ARNULFO MMENDED FOLLOW UP None.GE NERAL TEST INFORMA TIONThi s screeni ng provide s an estimat ion of risk, not adiagno sis. Incorre ct or incompl ete informa tion maysign ificant ly alter results . Risks are adjuste d for donoreg gs, frozen embryos , and IVF.Res ults may be unrelia ble in twin pregnan cies with a fetalde mise. Results are not availab le for pregnan cies withtri plets and higher- order multipl es.A positiv e result occurs when the risk for Down syndrom eequals or exceeds 1 in 270, when the risk for trisomy 18equal s or exceeds 1 in 100, or when the AFP MoM equals orexcee ds 2.5.Scr een results and family history influen ce individ ualrisk . If there is a family history of a neural tube defect, chromos ome abnorma lity, or other inherit ed conditi on,cons ider the option of a genetic consult ation.F or further informa tion, please contact the materna lscreen ing laborat ory at [phone] .Other Informa tion Initial testing Test Perform ed by:[facility] [address], [place] [address]Aj borator y Directo r: Mike Rehman M.D. URINALYSIS W/MICRO Observa Value Referen Units Interpr Notes Date tion ce etation Range Color DARK YELLOW, No Abnorma No Nov 3 YELLOW STRAW,C informa l informa 2013 OLORLES tion in tion in 2:08 PM S,PALE source source YELLOW data data Appeara CLEAR CLEAR No Normal No Nov 3 nce informa informa 2014 tion in tion in 2:08 PM source source data data Specifi 1.020 1.016 - No Normal No Nov 3 c 1.022 informa informa 2014 [place] tion in tion in 2:08 PM source source data data PH 6.5 5.0 - No Normal No Nov 3 7.0 informa informa 2014 tion in tion in 2:08 PM source source data data Leukocy NEGATIV NEGATIV No Normal No Nov 3 te E E informa informa 2014 tion in tion in 2:08 PM source source data data Nitrite NEGATIV NEGATIV No Normal No Nov 3 E E informa informa 2013 tion in tion in 2:08 PM source source data data UA NEGATIV NEGATIV No Normal No Nov 3 Protein E E informa informa 2014 tion in tion in 2:08 PM source source data data Glucose NEGATIV NEGATIV No Normal No Nov 3 E E informa informa 2013 tion in tion in 2:08 PM source source data data Ketones NEGATIV NEGATIV No Normal No Nov 3 E E informa informa 2014 tion in tion in 2:08 PM source source data data Urobili NEGATIV 0 - 1 mg/dL Normal No Nov 3 nogen E informa 2013 tion in 2:08 PM source data Bilirub NEGATIV NEGATIV No Normal No Nov 3 in E E informa informa 2014 tion in tion in 2:08 PM source source data data Blood NEGATIV NEGATIV No Normal No Nov 3 E E informa informa 2013 tion in tion in 2:08 PM source source data data UA WBC 0-2 0 - 2 No Normal No Nov 3 informa informa 2013 tion in tion in 2:08 PM source source data data UA RBC NONE 0 - 2 No Abnorma No Nov 3 SEEN informa l informa 2013 tion in tion in 2:08 PM source source data data Bacteri NONE NONE No Normal No Nov 3 a SEEN SEEN informa informa 2013 tion in tion in 2:08 PM source source data data Epithel 10-20 NONE No Abnorma No Nov 3 ial SQUAMOU SEEN informa l informa 2013 Cells S tion in tion in 2:08 PM EPITHEL source source IAL data data CELLS GC/CHLAMYDIA AMP DNA -REF LAB Observa Value Referen Units Interpr Notes Date tion ce etation Range Chlamyd Negativ Negativ No Normal Please Nov 5 ia sp e for e for informa Note: 2013 DNA Chlamyd Chlamyd tion in A 2:49 PM [Presen ia ia source negativ ce] in trachom trachom data e Cervix atis by atis by result by does Probe & Amplifi Amplifi not target ed DNA ed DNA preclud Probe Probe e amplifi Chlamyd cation ia method Trachom atisinf ection because results are depende nt on adequat e specime ntcolle ction, absence of inhibit ors, and suffici ent DNA to be detecte d. Neisser Negativ Negativ No Normal Please Feb 22 ia e for e for informa Note: 2013 gonorrh Neisser Neisser tion in A 2:49 PM oeae ia ia source negativ Amplifi gonorrh gonorrh data e ed DNA oeae by oeae by result does Amplifi Amplifi not ed DNA ed DNA preclud Probe Probe e Neisser ia gonorrh oeaeinf ection because results are depende nt on adequat e specime ntcolle ction, absence of inhibit ors, and suffici ent DNA to be detecte d. URINALYSIS W/MICRO Observa Value Referen Units Interpr Notes Date tion ce etation Range Color DARK YELLOW, No Abnorma No Sep 8 YELLOW STRAW,C informa l informa 2014 [place] tion in tion in 6:11 PM S,PALE source source YELLOW data data Appeara SL HAZY CLEAR No Abnorma No Sep 8 nce informa l informa 2014 tion in tion in 6:11 PM source source data data Specifi 1.025 1.016 - No High No Sep 8 c 1.022 informa informa 2014 [place] tion in tion in 6:11 PM source source data data PH 5.0 5.0 - No Normal No Sep 8 7.0 informa informa 2014 tion in tion in 6:11 PM source source data data Leukocy NEGATIV NEGATIV No Normal No Sep 8 te E E informa informa 2013 tion in tion in 6:11 PM source source data data Nitrite NEGATIV NEGATIV No Normal No Sep 8 E E informa informa 2014 tion in tion in 6:11 PM source source data data UA NEGATIV NEGATIV No Normal No Sep 8 Protein E E informa informa 2013 tion in tion in 6:11 PM source source data data Glucose NEGATIV NEGATIV No Normal No Sep 8 E E informa informa 2013 tion in tion in 6:11 PM source source data data Ketones NEGATIV NEGATIV No Normal No Sep 8 E E informa informa 2013 tion in tion in 6:11 PM source source data data Urobili NEGATIV 0 - 1 mg/dL Normal No Sep 8 nogen E informa 2013 tion in 6:11 PM source data Bilirub NEGATIV NEGATIV No Normal No Sep 8 in E E informa informa 2013 tion in tion in 6:11 PM source source data data Blood 1+ NEGATIV No Abnorma No Sep 8 E informa l informa 2013 tion in tion in 6:11 PM source source data data UA WBC 0-2 0 - 2 No Normal No Sep 8 informa informa 2013 tion in tion in 6:11 PM source source data data UA RBC 2-5 0 - 2 No Abnorma No Sep 8 informa l informa 2013 tion in tion in 6:11 PM source source data data Bacteri TRACE NONE No Abnorma No Sep 8 a SEEN informa l informa 2013 tion in tion in 6:11 PM source source data data Epithel 10-20 NONE No Abnorma No Sep 8 ial SQUAMOU SEEN informa l informa 2013 Cells S tion in tion in 6:11 PM EPITHEL source source IAL data data CELLS Mucus 2+ NONE No Abnorma No Sep 8 SEEN informa l informa 2013 tion in tion in 6:11 PM source source data data Casts NONE NONE No Normal No Sep 8 SEEN SEEN informa informa 2013 tion in tion in 6:11 PM source source data data Crystal 2-5 NONE No Abnorma No Sep 8 s CALCIUM SEEN informa l informa 2013 tion in tion in 6:11 PM OXALATE source source data data CRYSTAL S YEAST, NONE NONE No Normal No Sep 8 UA OBSERVE OBSERVE informa informa 2013 D D tion in tion in 6:11 PM source source data data AMORPHO NONE NONE No Normal No Sep 8 US SEEN SEEN informa informa 2013 SEDIMEN tion in tion in 6:11 PM T source source data data TRICHOM NONE No No No No Sep 8 ONAS SEEN informa informa informa informa 2013 tion in tion in tion in tion in 6:11 PM source source source source data data data data RPR,SERUM Observa Value Referen Units Interpr Notes Date ti ce etation Range RPR NON-OLVIN NON-OLVIN No Normal No Sep [address] informa informa 2013 in ti in 7:17 AM source source data data HEPATITIS C AB Observa Value Referen Units Interpr Notes Date ti ce etation Range Hepatit Negativ Negativ No Normal Hepatit Sep 9 is C e e informa 2013 tion in Virus 6:49 AM Ab source Panel [Presen data LegendH ce] in BSAB Serum = Hepatit is B surface antibod y Qualita tiveHBS CON = Hepatit is B surface antibod y Concent rationH BSAG = Hepatit is B surface antigen HBCAB = Hepatit is B core antibod y, TotalHB C IGM = Hepatit is B core antibod y, IgMHAVT = Hepatit is A antibod y, TotalHA V IGM = Hepatit is A antibod y, IgMHCVA B = Hepatit is C antibod yHCV INDX = Hepatit is C ab, Signal/ Cut-off ratio HCV AB 0.07 No Ratio No For our Sep 9 INDEX informa informa FDA 2013on in ti in approve 6:49 AM source source d HCV data data antibod y assay, the CDC states that reflexs uppleme ntal testing of screeni ng-test -positi ve samples can be limited to those with indices (or Signal/ Cut-off ratios) <11.00. However , perCDC publish ed guideli hunter, if the index (or Signal/ Cut-off ratio) is > or= 11.00, then further confirm atory testing for this sample isunnec essary. HEPATITIS BS AG Observa Value Referen Units Interpr Notes Date ti ce etation Range Hepatit Negativ Negativ No Normal Hepatit Sep 9 is B e e informa 2013 tion in Virus 6:49 AM surface source Panel Ag data LegendH [Presen BSAB ce] in Serum = Hepatit is B surface antibod y Qualita tiveHBS CON = Hepatit is B surface antibod y Concent rationH BSAG = Hepatit is B surface antigen HBCAB = Hepatit is B core antibod y, TotalHB C IGM = Hepatit is B core antibod y, IgMHAVT = Hepatit is A antibod y, TotalHA V IGM = Hepatit is A antibod y, IgMHCVA B = Hepatit is C antibod yHCV INDX = Hepatit is C ab, Signal/ Cut-off ratio RUBELLA IGG AB Observa Value Referen Units Interpr Notes Date tion ce etation Range Rubella IMMUNE IMMUNE No Normal No Sep 9 IgG informa informa 2013 tion in tion in 4:46 AM source source data data TYPE AND SCREEN 2 CELL PANEL Observa Value Referen Units Interpr Notes Date tion ce etation Range Antibod NEGATIV No No No No Sep 8 y E informa informa informa informa 2013 Screen tion in tion in tion in tion in 6:57 PM source source source source data data data data ABO/RH A No No No No Sep 8 TYPING Positiv informa informa informa informa 2013 e tion in tion in tion in tion in 6:57 PM source source source source data data data data CBC W/DIFF Observa Value Referen Units Interpr Notes Date tion ce etation Range WBC 8.6 3.5 - X_10\S\ Normal No Sep 8 9.6 3 inform2013 tion in 6:01 PM source data RBC 4.66 4.20 - X_10\S\ Normal No Sep 8 5.40 6 inform2013 tion in 6:01 PM source data Hemoglo 13.8 12.0 - gm/dL Normal No Sep 8 bin 16.0 inform2013 tion in 6:01 PM source data Hematoc 41.0 37.0 - % Normal No Sep 8 rit 47.0 informa 2013 tion in 6:01 PM source data Platele 315 130 - X_10\S\ Normal No Sep 8 t 400 3 inform2013 tion in 6:01 PM source data MCH 29.6 27.0 - pg Normal No Sep 8 32.0 informa 2013 tion in 6:01 PM source data MCHC 33.7 32.0 - gm/dL Normal No Sep 8 37.0 informa 2013 tion in 6:01 PM source data MCV 87.9 81.0 - fl Normal No Sep 8 99.0 informa 2013 tion in 6:01 PM source data RDW 13.7 12.0 - % Normal No Sep 8 15.0 inform2013 tion in 6:01 PM source data MPV 9.2 6.2 - fl Normal No Sep 8 10.6 inform2013 tion in 6:01 PM source data Neutrop 76.3 42.0 - % High No Sep 8 hils % 75.0 2013 tion in 6:01 PM source data Lymphoc 15.6 20.0 - % Low No Sep 8 ytes % 51.0 2013 tion in 6:01 PM source data Monocyt 7.0 0.0 - % Normal No Sep 8 es % 13.0 inform2013 tion in 6:01 PM source data Eosinop 0.5 0.0 - % Normal No Sep 8 hils % 6.0 2013 tion in 6:01 PM source data Basophi 0.6 0.0 - % Normal No Sep 8 ls % 2.0 2013 tion in 6:01 PM source data Neutrop 6.6 1.5 - X_10\S\ Normal No Sep 8 hil 7.1 3 2013 Count tion in 6:01 PM source data Monocyt 0.6 0.2 - X_10\S\ Normal No Sep 8 e Count 1.2 3 2013 tion in 6:01 PM source data Eosinop 0.0 0.0 - X_10\S\ Normal No Sep 8 hil 0.8 3 2013 Count tion in 6:01 PM source data Basophi 0.1 0.0 - X_10\S\ Normal No Sep 8 l Count 0.1 3 2013 tion in 6:01 PM source data Lymphoc 1.3 0.7 - X_10\S\ Normal No Sep 8 yte 4.3 3 inform2013 Count tion in 6:01 PM source data
--- OUTSIDE RECORDS SUMMARY | 2017-03-25 02:47 | External Medical Summary Rpt ---
[...] at L4-L5 and L5-S1. There is associa juana mild to moderat e central canal stenosi [...] Apr 03 c 1.022 informa informa 2013 [place] tion in tion in 3:05 PM source [...] Apr 01 c 1.022 informa informa 2013 [place] tion in tion in 3:04 PM source [...] screen risk estimat e < 1/100IN TERPRET [facility] reen negativ e for neural tube [...] the materna lscreen ing laborat ory at [phone] .Other Informa tion Initial testing Test Perform ed by:[facility] [address], [place] [address]Ah borator y Directo r: Mike Rehman M.D. [...] Nov 3 c 1.022 informa informa 2014 [place] tion in tion in 2:08 PM source [...] Sep 8 c 1.022 informa informa 2014 [place] tion in tion in 6:11 PM source [...]
== END 2017-03-25 02:36 | disposition home or self-care (01) ==
LOC: ER 01:31
PROVIDERS: Emergency Medicine
DX: N39.0 Urinary tract infection, site not specified (principal)